=== PATIENT | male | born 1945 | race Caucasian/White ===

== ENCOUNTER → 2017-05-25 | Outpatient (CLI) | payer MEDICARE, OTHER, SELFPAY | PROVIDERS: Visit Provider Internal Medicine Adolescent Medicine | DX: I10 Essential (primary) hypertension (principal) | CPT/HCPCS: 36415; 71020; 80048; 85025 ==

== ENCOUNTER 2018-01-31 10:54 | Observation (INO) ==
--- NOTE | 2018-01-31 13:38 | Pharmacy Consult Notes ---
[facility] Pharmacy VTE Monitoring - Patient Demographics Admission date: 01/31/18 Report Date: 01/31/18 Time: 13:38 Allergies/Adverse Reactions: Patient Allergies hydrocodone [HYDROCODONE] Allergy (Unknown, Unverified 05/25/17 15:28) levocetirizine [From XYZAL] Allergy (Unknown, Unverified 05/25/17 15:28) Height: 1.75 m Weight: 103.447 kg - VTE Risk Clinical Trial Participant: No - Prophylaxis VTE Prophylaxis Ordered?: Yes Types of VTE Prophylaxis: TEDS Knee High
[2018-01-31 14:30] LABS: Coronavirus 229E Not Detected (NotDetected); Coronavirus NL63 Not Detected (NotDetected); Coronavirus OC43 Not Detected (NotDetected); Coronovirus HKU1,PCR Not Detected (NotDetected)
[2018-01-31 14:34] LABS: Basophils % 0.1 % (0.1-2.0); Eosinophils # 0.1 K/mm3 (0.0-0.4); Eosinophils % 0.8 % (0.1-12.0); Hematocrit 38.1 % (42.0-52.0); Hemoglobin 12.5 g/dL (14.1-18.0); Lymphocytes # 0.9 K/mm3 (0.7-4.5); Lymphocytes % 6.7 K/mm3 (10-50); Mean Corpuscular HGB Conc 32.9 g/dL (31.8-35.4); Mean Corpuscular Volume 94.3 fl (80-94); Mean Platelet Volume 7.7 fl (7.4-10.4); Monocytes # 0.6 K/mm3 (0.1-1.0); Monocytes % 4.5 % (1.7-9.3); Neutrophils # 11.2 K/mm3 (1.8-7.8); Neutrophils % 87.8 % (37.0-80.0); Platelet Count 225 K/mm3 (142-424); Red Blood Count 4.04 M/mm3 (4.60-6.20); White Blood Count 12.7 K/mm3 (4.8-10.8)
[2018-01-31 14:46] LABS: Albumin Level 2.5 gm/dL (3.4-5.0); Albumin/Globulin Ratio 0.6 (1.1-1.8); Bilirubin,Total 0.7 mg/dL (0.2-1.0); Calcium 8.2 mg/dL (8.5-10.1); Globulin 3.9 gm/dl (1.3-3.2); Total Protein,Serum 6.4 gm/dL (6.4-8.2)
[2018-01-31 15:17] LABS: Lymphocytes % 7 % (10-50); Monocytes % 8 % (2-9); Neutrophils % 84 % (42-76); Total Cells Counted 100
--- NOTE | 2018-01-31 15:22 | History & Physical Report ---
*Admission Date: 01/31/18 *Chief complaint: shortness of breath *History of present illness: 72 year old male with a significant h/o idiopathic pulmonary fibrosis presents to PCP office with increased cough and shortness of breath. Patient was seen in the office on 01/25 and given Doxycycline and prednisone. Patient reports shortness of breath and cough have worsened. States "I haven't slept in a week for coughing." Today, is was noted to be hypoxic with saturations 88% on 2L/NC and mildly tachypneic at 28. He had to stop multiple times walking into office from his car. He was directed admitted for IV antibiotics and further evaluation. [facility] History I have reviewed the patient's past medical history: Yes Medical History: Reports:: Hyperlipidemia, Hypertension Denies:: Diabetes Mellitus Type 1, Diabetes Mellitus Type 2 Other Medical History: Reports: Arthritis, Cataracts Other Surgeries: Yes: Cardiac Catheterization - *Social History Educational Level: Completed College Alcohol Intake: never Occupational Status: retired Household Members: spouse - Psychiatric History Expresses thoughts of harming self/others: None Suicide Plan Description: No Plan Review of Systems - Constitutional Reports fever(s), Reports malaise - *Respiratory Reports cough, Reports shortness of breath, Reports excessive phlegm production Meds Allergies Allergy/AdvReac Type Severity Reaction Status Date / Time hydrocodone [HYDROCODONE] Allergy Unknown Verified 01/31/18 14:40 levocetirizine [From XYZAL] Allergy Unknown Verified 01/31/18 14:40 Exam Vital signs and Labs for Last 24 Hours: Temp Pulse Resp BP Pulse Ox 98.2 F 86 20 129/58 92 L 01/31/18 13:32 01/31/18 13:32 01/31/18 13:32 01/31/18 13:32 01/31/18 13:32 Laboratory Results - last 24 hr 01/31/18 14:15: WBC 12.7 H, RBC 4.04 L, Hgb 12.5 L, Hct 38.1 L, MCV 94.3 H, MCH 31.0, MCHC 32.9, RDW 14.0, Plt Count 225, MPV 7.7, Neut % (Auto) 87.8 H, Lymph % (Auto) 6.7 L, [place] % (Auto) 4.5, Eos % (Auto) 0.8, Baso % (Auto) 0.1, Neut # ( Auto) 11.2 H, Lymph # (Auto) 0.9, [place] # (Auto) 0.6, Eos # (Auto) 0.1, Baso # ( Auto) 0.0 01/31/18 14:15: Sodium 142, Potassium 3.0 L, Chloride 105, Carbon Dioxide 27, Anion Gap 13.0, BUN 14, Creatinine 0.93, Estimated Creat Clear 101, Estimated GFR 80, Est GFR ( Amer) 97, Glucose 153 H, Calcium 8.2 L, Total Bilirubin 0.7, AST 16, ALT 26, Alkaline Phosphatase 74, Total Protein 6.4, Albumin 2.5 L, Globulin 3.9 H, Albumin/Globulin Ratio 0.6 L I & O for Last 24 hours: Intake & Output 01/29/18 01/30/18 01/31/18 02/01/18 11:59 11:59 11:59 11:59 Weight 228 lb 1 oz Microbiology Reports for the Last 24 Hours: Microbiology 01/31/18 13:23 Sputum - Expectorated Sputum Gram Stain - Final Narrative: Alert and oriented x3. Rate and rhythm regular. No edema. TM with serous effusions bilaterally. + thrush. Lung sounds with crackles right posterior lung and skilled nursing up left posterior lung. Abdomen soft and nontender. Neuro exam unremarkable. Assessment and Plan (1) Pulmonary fibrosis Current visit: Yes Status: Chronic Category: Medical Code(s): J84.10 - Pulmonary fibrosis, unspecified (2) CAP (community acquired pneumonia) Current visit: Yes Status: Acute Category: Medical Code(s): J18.9 - Pneumonia, unspecified organism (3) Thrush Current visit: Yes Status: Acute Category: Medical Code(s): B37.0 - Candidal stomatitis - Assessment and plan all Dx Assessment and Plan for all problems:: CXR showed RUL pneumonia. CAP pneumonia protocol with pseudomonas coverage. Nystatin swish and swallow for thrush.
--- NOTE | 2018-01-31 22:13 | Cardiology Report ---
PROCEDURE: 2-D M-mode and color Doppler study INDICATIONS FOR THE TEST: Chest pain COPD Heart Murmur Tobacco Smoking Palpitations Fatigue Syncope Edema HypertensionXDiabetes Mellitus Rheumatic Fever SOBXDOEXObesityXHyperlipidemiaX Family History HD Additional History PUL FIBROSIS PATIENT INFORMATION HEIGHT: 69 WEIGHT:226 GENDER: Male B/P:118/60 2-D/M-MODE INTERPRETATION: 2-D MEASUREMENTS OBSERVED VALUES IN CMS Right Ventricular Dimension (RVDd) 3.5 Interventricular Septum (Thickness)(IVsd) 1.0 Left Ventricular Internal Dimensions(LVIDd) 5.0 Left Ventricular Posterior Wall (Thickness)(LVPWd) .9 Aortic Root 3.3 Aortic Cusp Separation 1.6 Left Atrial Dimensions (LAD) 4.2 2D 1. Left atrium is mildly enlarged, left ventricle is normal size, there is no concentric left ventricular hypertrophy, visually estimated ejection fraction 55% with no obvious regional wall motion abnormality. 2. The right atrium and right ventricle are mildly enlarged with normal contractility. 3. The aortic valve is minimally thickened and fibrosed. 4. The mitral leaflets of myxomatous, there is mild prolapse of both anterior and posterior mitral leaflet. 5. The tricuspid valve leaflets are structurally normal. 6. The pulmonic valve is poorly visualized. 7. No significant pericardial effusion noted. DOPPLER INTERROGATION: Doppler interrogation of the aortic, mitral and tricuspid presence of mild mitral and tricuspid regurgitation, calculated right ventricular systolic pressure is 60 mmHg consistent with moderate pulmonary hypertension, diastolic parameters are inconclusive. CONCLUSION: 1. Mild biatrial enlargement, normal left ventricular size, preserved left ventricular systolic function, visually estimated ejection fraction of 55% with no obvious regional wall motion abnormality. Diastolic parameters are inconclusive. 2. Mild mitral valve prolapse associated with mild mitral regurgitation 3. Mild tricuspid regurgitation, calculated right ventricular systolic pressure is 60 mmHg consistent with moderate pulmonary hypertension, right ventricle is mildly enlarged with normal contractility 4. No significant pericardial effusion noted.
[2018-02-01 06:49] LABS: Basophils % 0.1 % (0.1-2.0); Eosinophils % 0.1 % (0.1-12.0); Hematocrit 37.2 % (42.0-52.0); Hemoglobin 11.7 g/dL (14.1-18.0); Lymphocytes # 0.6 K/mm3 (0.7-4.5); Mean Corpuscular HGB Conc 31.4 g/dL (31.8-35.4); Mean Corpuscular Hemoglobin 30.3 pg (27.0-31.2); Mean Corpuscular Volume 96.4 fl (80-94); Mean Platelet Volume 7.8 fl (7.4-10.4); Monocytes # 0.2 K/mm3 (0.1-1.0); Monocytes % 2.3 % (1.7-9.3); Neutrophils # 9.1 K/mm3 (1.8-7.8); Neutrophils % 91.6 % (37.0-80.0); Platelet Count 230 K/mm3 (142-424); Red Blood Count 3.85 M/mm3 (4.60-6.20); Red Cell Distribution Width 13.9 % (11.5-17.5); White Blood Count 9.9 K/mm3 (4.8-10.8)
[2018-02-01 06:55] LABS: Anion Gap 14.4 mEq/L (5-15); Calcium 8.1 mg/dL (8.5-10.1); Potassium 3.4 mmoL/L (3.5-5.1)
[2018-02-01 09:06] LABS: Lymphocytes % 6 % (10-50); Monocytes % 1 % (2-9); Neutrophils % 92 % (42-76); Total Cells Counted 100
--- NOTE | 2018-02-01 18:04 | Progress Note ---
Internal Medicine - PN: Subj *Date: 02/01/18 *Time: 18:01 Interval history: Patient states he is feeling better this morning. Continues to require supplemental oxygen of 2 L. Remains afebrile. Hemodynamically stable. Denies any chest pain, nausea or vomiting, diarrhea. Of note wears oxygen at home of 2 L while asleep. Usually does not wear oxygen during the day Exam Vital signs and Labs for Last 24 Hours: Temp Pulse Resp BP Pulse Ox 98.3 F 90 22 120/62 90 L 02/01/18 15:17 02/01/18 15:17 02/01/18 15:17 02/01/18 15:17 02/01/18 15:17 Laboratory Results - last 24 hr 02/01/18 06:01: WBC 9.9, RBC 3.85 L, Hgb 11.7 L, Hct 37.2 L, MCV 96.4 H, MCH 30.3, MCHC 31.4 L, RDW 13.9, Plt Count 230, MPV 7.8, Neut % (Auto) 91.6 H, Lymph % (Auto) 6.0 L, [place] % (Auto) 2.3, Eos % (Auto) 0.1, Baso % (Auto) 0.1, Neut # (Auto) 9.1 H, Lymph # (Auto) 0.6 L, [place] # (Auto) 0.2, Eos # (Auto) 0.0, Baso # (Auto) 0.0, Total Counted 100, Neutrophils % (Manual) 92 H, Band Neutrophils % 1.0, Lymphocytes % (Manual) 6 L, Monocytes % (Manual) 1 L, Platelet Estimate Normal 02/01/18 06:01: Sodium 141, Potassium 3.4 L, Chloride 105, Carbon Dioxide 25, Anion Gap 14.4, BUN 17, Creatinine 1.04, Estimated Creat Clear 97, Estimated GFR 71, Est GFR ( Amer) 85, Glucose 252 H D, Calcium 8.1 L I & O for Last 24 hours: Intake & Output 01/29/18 01/30/18 01/31/18 02/01/18 23:59 23:59 23:59 23:59 Intake Total 400 / 400 1280 / 1280 Balance 400 / 400 1280 / 1280 Weight 103.447 kg Microbiology Reports for the Last 24 Hours: Microbiology 01/31/18 13:23 Sputum - Expectorated Sputum Gram Stain - Final 01/31/18 13:23 Sputum - Expectorated Sputum Sputum Culture - Preliminary - *Routine HEENT Exam Head: Present: normocephalic, atraumatic Eye: Present: EOMI, PERRL ENT: Present: mucous membranes moist Comments: Nasal cannula in place - *Routine Neck Exam Present: supple, full ROM, JVD. Absent: lymphadenopathy - *Routine Respiratory Exam Present: prolonged expiratory phase, rales (Fine crackles throughout all lung gonzalez). Absent: accessory muscle use, CTA bilaterally, wheezes - *Routine Cardiovascular Exam Present: RRR, Normal S1, Normal S2. Absent: murmur - *Routine Abdominal Exam Present: soft, normoactive bowel sounds - *Routine Rectal Exam Patient deferred: visual exam - *Routine Exam Patient deferred: penile exam - *Routine Extremities Exam Absent: cyanosis, clubbing, edema - *Routine Skin Exam Present: intact. Absent: cyanosis - *Routine Neurological Exam Present: alert, oriented X3, CN II-XII intact. Absent: altered mental status Assessment and Plan (1) Pulmonary fibrosis Current visit: Yes Status: Chronic Category: Medical Code(s): J84.10 - Pulmonary fibrosis, unspecified (2) CAP (community acquired pneumonia) Current visit: Yes Status: Acute Category: Medical Code(s): J18.9 - Pneumonia, unspecified organism (3) Thrush Current visit: Yes Status: Acute Category: Medical Code(s): B37.0 - Candidal stomatitis Improving, continue nystatin - Assessment and plan all Dx Assessment and Plan for all problems:: Patient has acute on chronic hypoxemic respiratory failure secondary to pneumonia superimposed on idiopathic pulmonary fibrosis. Responding well to antibiotic therapy. Transition to oral Levaquin today. Discontinue Zosyn. Continue to wean oxygen with goal saturation of greater than 92 while awake, greater than 88 while asleep. Continuing azithromycin as per home regimen. Continue regular diet. To new duo nebs Continue home treatment for hypertension/CHF Continue tamsulosin for BPH Continue to require inpatient medical management
--- NOTE | 2018-02-02 08:06 | Discharge Summary ---
General - General Admission date:: 01/31/18 Discharge date: 02/02/18 HPI HPI: 72 year old male with a significant h/o idiopathic pulmonary fibrosis presents to PCP office with increased cough and shortness of breath. Patient was seen in the office on 01/25 and given Doxycycline and prednisone. Patient reports shortness of breath and cough have worsened. States "I haven't slept in a week for coughing." Today, is was noted to be hypoxic with saturations 88% on 2L/NC and mildly tachypneic at 28. He had to stop multiple times walking into office from his car. He was directed admitted for IV antibiotics and further evaluation. Hospital Course Hospital Course: Patient was admitted, found to have right upper and middle lobe pneumonia and treated with broad-spectrum antibiotics. Sputum culture showed few gram- negative rods and coverage was narrowed to levofloxacin. Patient improved, continue to struggle with his baseline fibrosis and did have oral thrush, treated with nystatin wash which improved him over the next couple days. This morning he is almost back to his baseline. Tolerating levofloxacin well. He will be discharged home to finish up a course of this along with his your steroid dose, cough suppressant and nystatin will be prescribed as well. I will see him in 2 weeks. Objective Vital signs: Temp Pulse Resp BP Pulse Ox 98.4 F 92 H 18 136/67 94 L 02/02/18 07:55 02/02/18 07:55 02/02/18 07:55 02/02/18 07:55 02/02/18 07:55 Narrative: Patient is awake, alert, oriented 2, pleasant. Oropharynx has minimal thrush in the lip line bilaterally. Buccal mucus has cleared. Lungs have fibrosis dry crackle sounds in the bases, crackles in the upper lobes are improving. Heart rate regular, abdomen soft, no rash. Results Labs on day of discharge: Labs from last 24 hours 02/01/18 06:01 Total Counted 100 Neutrophils % (Manual) 92 H Band Neutrophils % 1.0 Lymphocytes % (Manual) 6 L Monocytes % (Manual) 1 L Platelet Estimate Normal Preliminary micro results at discharge 01/31/18 13:23 Sputum Culture - Preliminary Sputum - Expectorated Sputum DS: Diagnosis - Discharge Diagnosis (1) Pulmonary fibrosis Status: Chronic (2) CAP (community acquired pneumonia) Status: Acute (3) Thrush Status: Acute Discharge Plan - Patient Discharge Instructions ACTIVITY: Continue current activity DIET: continue same diet - Follow up Plan Follow up with: Thee Childs MD [Primary Care Provider] - 02/15/18 Disposition: Home, Self-[facility] Medications: Home Medications Medication Instructions Recorded Confirmed Type Aspirin [Aspir 81] 81 mg PO HS 01/31/18 01/31/18 History Atorvastatin Calcium [Lipitor 40mg 40 mg PO HS 01/31/18 01/31/18 History Tablet] Azithromycin [Zithromax 250mg 250 mg PO DAILY 01/31/18 01/31/18 History tab] Cetirizine HCl [Zyrtec] 10 mg PO DAILY 01/31/18 01/31/18 History Fluticasone Propionate [Flonase 2 spr NS DAILY 01/31/18 01/31/18 History 50mcg nasal spray 16gm] Fluticasone/Salmeterol [Advair 500 each IH DAILY 01/31/18 01/31/18 History 500/50mcg diskus] Furosemide [Lasix 20mg tab] 20 mg PO DAILY 01/31/18 01/31/18 History Metoprolol Tartrate 25 mg PO BID 01/31/18 01/31/18 History Mycophenolate Mofetil [Cellcept] 1,500 mg PO BID 01/31/18 01/31/18 History Omeprazole [Omeprazole 40mg 20 mg PO BID 01/31/18 01/31/18 History Capsule] Tamsulosin HCl [Flomax 0.4mg 0.4 mg PO HS 01/31/18 01/31/18 History capsule] predniSONE [Deltasone 10mg 7.5 mg PO DAILY 01/31/18 01/31/18 History tablet] Prescriptions/Medication Reconciliation: New levoFLOXacin [Levaquin 750mg tablet] 750 mg PO 1100 #5 tablet Nystatin [Nystatin Susp 500,000 Units/5mL Udc] 500,000 unit PO QID #240 ml Benzonatate [Tessalon Perle 100mg Cap] 200 mg PO TID PRN #30 cap PRN Reason: Cough Continue Azithromycin [Zithromax 250mg tab] 250 mg PO DAILY predniSONE [Deltasone 10mg tablet] 7.5 mg PO DAILY Metoprolol Tartrate 25 mg PO BID Fluticasone/Salmeterol [Advair 500/50mcg diskus] 500 each IH DAILY Cetirizine HCl [Zyrtec] 10 mg PO DAILY Furosemide [Lasix 20mg tab] 20 mg PO DAILY Atorvastatin Calcium [Lipitor 40mg Tablet] 40 mg PO HS Tamsulosin HCl [Flomax 0.4mg capsule] 0.4 mg PO HS Mycophenolate Mofetil [Cellcept] 1,500 mg PO BID Fluticasone Propionate [Flonase 50mcg nasal spray 16gm] 2 spr NS DAILY Aspirin [Aspir 81] 81 mg PO HS Omeprazole [Omeprazole 40mg Capsule] 20 mg PO BID
== END 2018-02-02 10:25 | disposition home or self-care (01) ==
LOC: 2ND
PROVIDERS: ADMIT Internal Medicine Adolescent Medicine; ATTEND Internal Medicine Adolescent Medicine
DX: J18.9 Pneumonia, unspecified organism
CPT/HCPCS: 36415; 71020; 71046; 80048; 80053; 83880; 85007; 85025; 86738; 87040; 87070; 87205; 87486; 87581; 87633; 87798; 93306; 94640; 94761; G0378; J1956; J2543

== ENCOUNTER 2018-02-02 22:14 | Inpatient (IN) ==
[2018-02-02 22:30] LABS: ABG Base Excess 3.6 mmol/L (-2.4-2.3); ABG HCO3 26.4 mmhg (22.0-26.0); ABG Oxygen Saturation 88 % (90-100); ABG PCO2 33.2 mmhg (35.0-45.0); ABG PH 7.52 mmol/L (7.35-7.45); ABG TCO2 27.5 mmhg (23-27)
[2018-02-02 22:33] LABS: ABG PO2 49.7 mmhg (80-100); Allen's Test Acceptable; Oxygen 36 %
[2018-02-02 22:38] LABS: Basophils % 0.2 % (0.1-2.0); Eosinophils # 0.2 K/mm3 (0.0-0.4); Eosinophils % 0.8 % (0.1-12.0); Hematocrit 42.7 % (42.0-52.0); Hemoglobin 13.7 g/dL (14.1-18.0); Lymphocytes # 1.8 K/mm3 (0.7-4.5); Lymphocytes % 10.4 K/mm3 (10-50); Mean Corpuscular Hemoglobin 30.4 pg (27.0-31.2); Mean Corpuscular Volume 94.8 fl (80-94); Mean Platelet Volume 7.7 fl (7.4-10.4); Monocytes # 0.9 K/mm3 (0.1-1.0); Neutrophils # 14.4 K/mm3 (1.8-7.8); Neutrophils % 83.6 % (37.0-80.0); Platelet Count 301 K/mm3 (142-424); Red Cell Distribution Width 14.1 % (11.5-17.5); White Blood Count 17.2 K/mm3 (4.8-10.8)
[2018-02-02 23:03] LABS: Alanine Aminotransferase 37 U/L (12-78); Albumin Level 2.8 gm/dL (3.4-5.0); Albumin/Globulin Ratio 0.7 (1.1-1.8); Alkaline Phosphatase 82 U/L (46-116); Anion Gap 11.4 mEq/L (5-15); Aspartate Amino Transferase 25 U/L (15-37); Bilirubin,Total 0.4 mg/dL (0.2-1.0); Blood Urea Nitrogen 20 mg/dL (7-18); Calcium 8.5 mg/dL (8.5-10.1); Carbon Dioxide 29 mmol/L (21.0-32.0); Chloride 105 mmol/L (98-107); Creatine Kinase 561 U/L (39-308); Globulin 4.1 gm/dl (1.3-3.2); Glucose 135 mg/dL (74-106); Potassium 3.4 mmoL/L (3.5-5.1); Sodium 142 mmol/L (136-145); Total Protein,Serum 6.9 gm/dL (6.4-8.2)
--- NOTE | 2018-02-02 23:03 | Emergency Department Note ---
ED Disposition Clinical Impression: Pulmonary fibrosis, Hemoptysis, Pulmonary HTN CAP (community acquired pneumonia) Qualifiers: Laterality: unspecified laterality Qualified Code(s): J18.9 - Pneumonia, unspecified organism Disposition: Admitted as Observation Condition on Discharge: Serious Referrals: Thee Childs MD [Primary Care Provider] - - Critical Care Critical Care Time: No Attestation: On 02/02/18, the high probability of a clinically significant, sudden or life threatening deterioration of the following system(s) required my full and direct attention, intervention and personal management. The time I documented below is in addition to time spent performing reported procedures but includes the following listed in this critical care notation. Medical Decision Making - Medical Records Medical records reviewed: Yes: I reviewed the patient's medical records. - Cesra Inquiry Pt receiving controlled substance: No Vital Signs: 02/02/18 22:23 02/02/18 22:43 02/02/18 23:22 Temperature 98.7 F 98.6 F Temperature Source Oral Oral Pulse Rate 90 Pulse Rate [Left Radial] 95 H 100 H Respiratory Rate 28 H 24 Blood Pressure [Right Arm] 134/76 139/82 Blood Pressure Mean [Right Arm] 95 101 Blood Pressure Source [Right Arm] Automatic Cuff Automatic Cuff Blood Pressure Position [Right Arm] Sitting Sitting 02 Sat by Pulse Oximetry 90 L 94 L Oxygen Delivery Method Nasal Cannula Venturi Mask Oxygen Flow Rate (LPM) 4 12 02/03/18 00:22 Temperature Temperature Source Pulse Rate Pulse Rate [Left Radial] 82 Respiratory Rate Blood Pressure [Right Arm] 128/67 Blood Pressure Mean [Right Arm] 87 Blood Pressure Source [Right Arm] Automatic Cuff Blood Pressure Position [Right Arm] Sitting 02 Sat by Pulse Oximetry 87 L Oxygen Delivery Method Venturi Mask Oxygen Flow Rate (LPM) - Lab Data Lab results reviewed: Yes: I reviewed the patient's lab results. Lab Results 02/02/18 22:22: WBC 17.2 H D, RBC 4.50 L, Hgb 13.7 L, Hct 42.7, MCV 94.8 H, MCH 30.4, MCHC 32.0, RDW 14.1, Plt Count 301 D, MPV 7.7, Neut % (Auto) 83.6 H, Lymph % (Auto) 10.4, Mcdonough % (Auto) 5.0, Eos % (Auto) 0.8, Baso % (Auto) 0.2, Neut # (Auto) 14.4 H, Lymph # (Auto) 1.8, Mcdonough # (Auto) 0.9, Eos # (Auto) 0.2, Baso # (Auto) 0.0, Total Counted 100, Neutrophils % (Manual) 84 H, Lymphocytes % (Manual) 11, Monocytes % (Manual) 5, Platelet Estimate Normal, Anisocytosis 1+ 02/02/18 22:22: Sodium 142, Potassium 3.4 L, Chloride 105, Carbon Dioxide 29, Anion Gap 11.4, BUN 20 H, Creatinine 1.10, Estimated Creat Clear 88, Estimated GFR 66, Est GFR ( Amer) 80, Glucose 135 H, Calcium 8.5, Total Bilirubin 0.4, AST 25 D, ALT 37 D, Alkaline Phosphatase 82, Total Creatine Kinase 561 H* , CK-MB (CK-2) 4.3 H, CK-MB (CK-2) Rel Index 0.8, Troponin I < 0.02, Total Protein 6.9, Albumin 2.8 L, Globulin 4.1 H, Albumin/Globulin Ratio 0.7 L 02/02/18 22:22: Lactate 2.3 H 02/02/18 22:22: Specimen Source Rt radial, O2 % 36, ABG pH 7.52 H, ABG pCO2 33.2 L, ABG pO2 49.7 L, ABG HCO3 26.4 H, ABG Total CO2 27.5 H, ABG O2 Saturation 88 L , ABG Base Excess 3.6 H, Power Test Acceptable 02/02/18 23:28: Urine Color Yellow, Urine Appearance Clear, Urine pH 6.5, Ur Specific [place] 1.020, Urine Protein Negative, Urine Glucose (UA) Negative, Urine Ketones Negative, Urine Blood Negative, Urine Nitrate Negative, Urine Bilirubin Negative, Urine Urobilinogen 0.2, Ur Leukocyte Esterase Negative, Urine WBC Occasional, Urine Bacteria Trace Result diagrams: 02/02/18 22:22 02/02/18 22:22 Orders (Tests/Meds): ED MEDICATIONS Generic Name Dose Route Start Last Admin Trade Name Freq PRN Reason Stop Dose Admin Sodium Chloride 3 ml 02/02/18 22:29 Sodium Chloride 3% 15ml Neb IH 03/04/18 22:28 ONCE PRN INDUCE SPUTUM COLLECTION Discontinued Medications Generic Name Dose Route Start Last Admin Trade Name Freq PRN Reason Stop Dose Admin Albuterol/Ipratropium 3 ml 02/02/18 22:22 02/02/18 22:34 Duoneb 3ml Neb IH 02/02/18 22:23 3 ml ONCE ONE Administration Sodium Chloride 1,000 mls @ 999 mls/hr 02/02/18 22:30 02/02/18 22:34 Sod Chlor 0.9% 1000ml Bag IV 02/02/18 23:30 999 mls/hr .Q1H1M DOMINIC Administration Methylprednisolone Sodium Succinate 125 mg 02/02/18 22:22 02/02/18 22:33 Solu-Medrol 125mg/2ml Vial IV 02/02/18 22:23 125 mg ONCE ONE Administration ORDERS Category Date Time Status CT Chest w/PE protocol [CT angio chest] Stat Cat Scan 02/02/18 23:14 Ordered Chest XR -- portable [XR chest portable] Stat Exams 02/02/18 22:22 Taken UA [Urinalysis and Microscopic] Stat Lab 02/02/18 23:28 Ordered Blood Culture Stat Micro 02/02/18 22:22 Ordered Sputum Culture & Gram Stain Stat Micro 02/02/18 22:35 Ordered - Radiology Data #1 Image(s): Chest Image Reviewed: Yes I reviewed the patient's radiology image Preliminary Findings: Abnormal (fibrosis and pneumonia ) - CT Data CT Scan: Chest Time Received: 00:[address] Reviewed: Yes: I have viewed the radiologist's interpretation Preliminary Findings: Abnormal (cap/fibrosis) - ECG Data Tracing #1 Arrhythmias present: sinus tach Ischemic changes: non-specific ST-T wave changes Resp/SOB HPI - General Chief Complaint: Shortness of Breath/Dyspnea Stated Complaint: Coughing blood Time Seen by Provider: 02/02/18 22:40 Mode of Arrival: EMS Source of Information: Patient, Relative, EMS, Medical Record Limitations: No Limitations Description of Symptoms (Recalled from ER Triage Doc. by RN): to ed per squad with c/o SOB and "coughing up blood" pt just d/[facility] from hospital today with dx of pneumonia and pulmonary fibrosis. - History of Present Illness pt with recent admit for cap and was on levoquin but reports inc cough and had episode of hemoptysis and dec o2 sat - no chest pain reported - MD Complaint: shortness of breath, cough Onset (ago): hour(s) Context: recent illness Severity: moderate Exacerbating factors: coughing Known history of: recurrent pneumonia Associated symptoms: cough Treatment prior to arrival: bronchodilator - Related Data Home oxygen amount: other (40 percent mask) Home Medications Medication Instructions Recorded Confirmed Aspirin [Aspir 81] 81 mg PO HS 01/31/18 02/02/18 Atorvastatin Calcium [Lipitor 40mg 40 mg PO HS 01/31/18 02/02/18 Tablet] Azithromycin [Zithromax 250mg 250 mg PO DAILY 01/31/18 02/02/18 tab] Cetirizine HCl [Zyrtec] 10 mg PO DAILY 01/31/18 02/02/18 Fluticasone Propionate [Flonase 2 spr NS DAILY 01/31/18 02/02/18 50mcg nasal spray 16gm] Fluticasone/Salmeterol [Advair 1 puff IH BID 01/31/18 02/02/18 500/50mcg diskus] Furosemide [Lasix 20mg tablet] 20 mg PO DAILY 01/31/18 02/02/18 Metoprolol Tartrate 25 mg PO BID 01/31/18 02/02/18 Mycophenolate Mofetil [Cellcept] 1,500 mg PO BID 01/31/18 02/02/18 Omeprazole [Omeprazole 40mg 20 mg PO BID 01/31/18 02/02/18 Capsule] Tamsulosin HCl [Flomax 0.4mg 0.4 mg PO HS 01/31/18 02/02/18 capsule] predniSONE [Deltasone 10mg tablet] 2.5 mg PO DAILY 01/31/18 02/02/18 B12/Levomefolate Calcium/B-6 1 each PO DAILY 02/02/18 02/02/18 [Foltx Tablet] Glucosa Richard 2Kcl/Chondroitin Richard 1 each PO DAILY 02/02/18 02/02/18 [Glucosamine & Chondroitin Cap] Ipratropium [place] [Ipratropium 2 spray NS BID 02/02/18 02/02/18 [place] 0.021mg/act NS] Iron [Iron 18mg Tab] 65 mg PO DAILY 02/02/18 02/02/18 Multivitamin [Multivitamins] 1 each PO DAILY 02/02/18 02/02/18 Nystatin [Nystatin Susp 500,000 1 tsp PO QID 02/02/18 02/02/18 Units/5mL Udc] Potassium 99 mg PO DAILY 02/02/18 02/02/18 levoFLOXacin [Levaquin 750mg 750 mg PO DAILY 02/02/18 02/02/18 tablet] Previous Rx's Medication Instructions Recorded Benzonatate [Tessalon [place] 100mg 200 mg PO TID PRN #30 cap 02/02/18 Cap] Allergies Allergy/AdvReac Type Severity Reaction Status Date / Time hydrocodone [HYDROCODONE] Allergy Unknown Verified 01/31/18 14:40 levocetirizine [From XYZAL] Allergy Unknown Verified 01/31/18 14:40 chlorpheniramine AdvReac Mild Drowsy Verified 01/31/18 15:09 [From Tussionex] - Well's Criteria PE Score Clinical signs/symptoms of DVT: No PE is #1 diagnosis or equally likely: Yes Heart rate is > 100: Yes Immobile at least 3 days, or surgery in past 4 wks: No Previously, obj. diagnosed PE or DVT: No Hemoptysis: Yes Malignancy w/Rx within 6mo, or palliative: No PE Score: 5 [facility] History I have reviewed the patient's past medical history: Yes Medical History: Reports:: Hyperlipidemia, Hypertension Denies:: Diabetes Mellitus Type 1, Diabetes Mellitus Type 2 Other Medical History: Reports: Arthritis, Cataracts Other Surgeries: Yes: Cardiac Catheterization - Social History Alcohol Intake: never Occupational Status: retired Household Members: spouse - Psychiatric History Expresses thoughts of harming self/others: None Suicide Plan Description: No Plan ROS Obtained: Yes All systems reviewed & no additional complaints - Constitutional Constitutional: Reports fever(s) - Eyes Eyes: Denies change in vision - ENT Ears, Nose, Mouth, and Throat: Denies sore throat - Cardiovascular Cardiovascular: Denies chest pain, Reports dyspnea - Respiratory Respiratory: Yes as per HPI, Yes cough, Yes non-productive cough, Yes coughing up blood - Gastrointestinal Gastrointestingal: Denies: diarrhea, nausea, vomiting - Genitourinary Male Genitourinary: Denies hematuria - Musculoskeletal Musculoskeletal: Denies joint pain, Denies joint swelling - Integumentary/Breasts Skin/Breast: Denies rash - Neurologic Neurologic: Denies headache(s), Denies vertigo Physical Exam - General General appearance: alert, in no apparent distress - Head Head exam: normocephalic - Eye Eye exam: Present: PERRL, EOMI - ENT ENT exam: Present: mucous membranes moist - Neck Neck exam: Present: trachea midline - Respiratory Respiratory exam: Present: other (rales on rt ). Absent: respiratory distress - Cardiovascular Cardiovascular exam: Present: regular rate, systolic murmur, +S4 - Abdominal Exam Abdominal exam: Present: soft - Extremities Exam Extremities exam: Absent: calf tenderness - Neurological Exam Neurological exam: Present: alert, oriented X3, CN II-XII intact - Psychiatric Psychiatric exam: Present: normal affect - Skin Skin exam: Absent: rash
[2018-02-02 23:32] LABS: Microscopic, Urine URINE MICROSCOPIC (MICROSCOPIC)
[2018-02-02 23:34] LABS: Appearance,Urine CLEAR (Clear); Bilirubin,Urine Negative (Negative); Blood, Urine Negative (Negative); Color,Urine YELLOW (Yellow); Glucose,Urine (UA) Negative (Negative); Ketones,Urine Negative (Negative); Leukocyte Esterase,Urine Negative (Negative); PH,Urine 6.5 (5.0-8.5); Protein,Urine Negative (Negative); Urobilinogen,Urine 0.2 EU/dl (0.2)
[2018-02-02 23:39] LABS: Bacteria,Urine Trace /lpf; WBC,Urine Occasional #/hpf (0-3)
[2018-02-03 00:14] LABS: Anisocytosis 1+; Lymphocytes % 11 % (10-50); Monocytes % 5 % (2-9); Neutrophils % 84 % (42-76); Total Cells Counted 100
[2018-02-03 06:51] LABS: Basophils % 0.1 % (0.1-2.0); Eosinophils % 0.1 % (0.1-12.0); Hematocrit 40.4 % (42.0-52.0); Hemoglobin 12.4 g/dL (14.1-18.0); Lymphocytes # 0.7 K/mm3 (0.7-4.5); Lymphocytes % 4.9 K/mm3 (10-50); Mean Corpuscular HGB Conc 30.6 g/dL (31.8-35.4); Mean Corpuscular Hemoglobin 29.5 pg (27.0-31.2); Mean Corpuscular Volume 96.4 fl (80-94); Mean Platelet Volume 8.7 fl (7.4-10.4); Monocytes # 0.5 K/mm3 (0.1-1.0); Monocytes % 3.4 % (1.7-9.3); Neutrophils # 12.2 K/mm3 (1.8-7.8); Neutrophils % 91.5 % (37.0-80.0); Platelet Count 244 K/mm3 (142-424); Red Blood Count 4.19 M/mm3 (4.60-6.20); Red Cell Distribution Width 13.7 % (11.5-17.5); White Blood Count 13.4 K/mm3 (4.8-10.8)
[2018-02-03 07:21] LABS: Anion Gap 10.9 mEq/L (5-15); Blood Urea Nitrogen 18 mg/dL (7-18); Calcium 8.1 mg/dL (8.5-10.1); Carbon Dioxide 27 mmol/L (21.0-32.0); Chloride 105 mmol/L (98-107); Glucose 192 mg/dL (74-106); Potassium 3.9 mmoL/L (3.5-5.1); Sodium 139 mmol/L (136-145)
--- NOTE | 2018-02-03 07:40 | Pharmacy Consult Notes ---
[facility] Pharmacy VTE Monitoring - Patient Demographics Admission date: 02/02/18 Report Date: 02/03/18 Time: 07:38 Allergies/Adverse Reactions: Patient Allergies hydrocodone [HYDROCODONE] Allergy (Unknown, Verified 01/31/18 14:40) levocetirizine [From XYZAL] Allergy (Unknown, Verified 01/31/18 14:40) chlorpheniramine [From Tussionex] Adverse Reaction (Mild, Verified 01/31/18 15:09) Drowsy Height: 1.75 m Weight: 102.994 kg Patient Problems: Current Active Problems Pulmonary fibrosis (Chronic) CAP (community acquired pneumonia) (Acute) Hemoptysis (Acute) Pulmonary HTN (Acute) - VTE Risk Labs: VTE Related Lab Results Hgb 12.4 g/dL (14.1-18.0) L 02/03/18 06:23 Hct 40.4 % (42.0-52.0) L 02/03/18 06:23 Plt Count 244 K/mm3 (142-424) 02/03/18 06:23 BUN 18 mg/dL (7-18) 02/03/18 06:23 Creatinine 1.04 mg/dL (0.70-1.30) 02/03/18 06:23 Estimated Creat Clear 96 mL/min (0-300) 02/03/18 06:23 Was VTE Risk Assessment Performed: Yes VTE Risk Level: Very Low Risk - Prophylaxis VTE Prophylaxis Ordered?: Yes Types of VTE Prophylaxis: TEDS Knee High Location of Applied Device: Bilateral Lower Extremeties - VTE Diagnosis Confirmed Treatment or plan recommended: Continue Current Treatment
--- NOTE | 2018-02-03 08:52 | H&P/Discharge Summary ---
General - General Admission date:: 02/03/18 Discharge date: 02/03/18 *Admission Date: 02/02/18 *Chief complaint: Shortness of air and hemoptysis *History of present illness: 72-year-old white male with long history of idiopathic pulmonary fibrosis, followed by Dr. Jorge De La Paz at [facility] pulmonary. Patient has been on supplemental oxygen for 5 or 6 years and is on low-dose daily prednisone therapy. He has had frequent exacerbations requiring antibiotics at higher dose steroids over the past 12-24 months, and 2 weeks ago had an exacerbation that we initially treated as an outpatient with doxycycline and steroids. He initially improved, however had an exacerbation worsening earlier this week resulting in chest x-ray that showed right middle lobe infiltrate and admission to the hospital. He was treated with intravenous levofloxacin and did well over the next 48 hours and was transitioned to p.o. therapy and was discharged home yesterday, February 02 with p.o. Levaquin therapy and higher dose steroids. Initially at home did well, but yesterday evening began to have a significant episode of coughing and shortness of air. He has a home O2 saturation monitor that per his report read 65-70% on 2 L nasal cannula and began to have some hemoptysis which he described as bright red blood mixed in with some scant mucus. Called EMS, was brought to the emergency department. Chest x-ray was unchanged and patient improved with higher dose O2 therapy via facemask and stabilized in the low 90% range on a 40% nonrebreather mask. Blood gas showed pH 7.52/PCO2 33/PO2 49 before oxygen therapy was initiated. Other labs were essentially unchanged from his baseline. Patient was admitted to floor. [facility] History I have reviewed the patient's past medical history: Yes Medical History: Reports:: Hyperlipidemia, Hypertension, Lung Disease (Idiopathic pulmonary fibrosis) Denies:: Diabetes Mellitus Type 1, Diabetes Mellitus Type 2 Other Medical History: Reports: Arthritis, Cataracts Other Surgeries: Yes: Cardiac Catheterization - *Social History Educational Level: Completed College Alcohol Intake: never Occupational Status: retired Housing: house Household Members: spouse - Psychiatric History Expresses thoughts of harming self/others: None Suicide Plan Description: No Plan *Family Hx:: Coronary Artery Disease, Diabetes, Heart Attack Review of Systems - Review of Systems Review of systems:: pertinent systems reviewed and negative unless documented below - Constitutional Reports lack of energy, Reports malaise - Eyes Denies blind spots, Denies blurry vision, Denies change in vision - ENT Denies abnormal hearing, Denies bleeding gums, Denies nasal congestion, Denies nasal discharge - *Cardiovascular Reports shortness of breath, Reports shortness of breath with activity, Reports shortness of breath when lying down, Denies chest pain, Denies chest pain with activity, Denies leg pain with activity, Denies excessive sweating, Denies rapid, pounding, or irregular heartbeat, Denies shortness of breath causing sudden awakening - *Respiratory Reports shortness of breath, Reports coughing up blood, Denies change in phlegm color - *Gastrointestinal Denies abdominal pain, Denies belching, Denies constipation, Denies cramping - *Genitourinary Denies difficulty urinating - *Musculoskeletal Denies abnormal walking, Denies joint pain, Denies decreased muscle mass - Integumentary/Breasts Denies acne, Denies hair loss, Denies bleeding lesions - *Neurologic Denies headache(s), Denies dizziness - Endocrine Denies cold intolerance, Denies excessive sweating, Denies flushing, Denies rapid, pounding, or irregular heartbeat - Hematologic/Lymphatic Denies easy bleeding Exam Vital signs and Labs for Last 24 Hours: Temp Pulse Resp BP Pulse Ox 99.2 F 79 24 149/85 90 L 02/03/18 07:59 02/03/18 07:59 02/03/18 07:59 02/03/18 07:59 02/03/18 07:59 Laboratory Results - last 24 hr 02/02/18 22:22: WBC 17.2 H D, RBC 4.50 L, Hgb 13.7 L, Hct 42.7, MCV 94.8 H, MCH 30.4, MCHC 32.0, RDW 14.1, Plt Count 301 D, MPV 7.7, Neut % (Auto) 83.6 H, Lymph % (Auto) 10.4, Maury % (Auto) 5.0, Eos % (Auto) 0.8, Baso % (Auto) 0.2, Neut # (Auto) 14.4 H, Lymph # (Auto) 1.8, Maury # (Auto) 0.9, Eos # (Auto) 0.2, Baso # (Auto) 0.0, Total Counted 100, Neutrophils % (Manual) 84 H, Lymphocytes % (Manual) 11, Monocytes % (Manual) 5, Platelet Estimate Normal, Anisocytosis 1+ 02/02/18 22:22: Sodium 142, Potassium 3.4 L, Chloride 105, Carbon Dioxide 29, Anion Gap 11.4, BUN 20 H, Creatinine 1.10, Estimated Creat Clear 88, Estimated GFR 66, Est GFR ( Amer) 80, Glucose 135 H, Calcium 8.5, Total Bilirubin 0.4, AST 25 D, ALT 37 D, Alkaline Phosphatase 82, Total Creatine Kinase 561 H* , CK-MB (CK-2) 4.3 H, CK-MB (CK-2) Rel Index 0.8, Troponin I < 0.02, Total Protein 6.9, Albumin 2.8 L, Globulin 4.1 H, Albumin/Globulin Ratio 0.7 L 02/02/18 22:22: Lactate 2.3 H 02/02/18 22:22: Specimen Source Rt radial, O2 % 36, ABG pH 7.52 H, ABG pCO2 33.2 L, ABG pO2 49.7 L, ABG HCO3 26.4 H, ABG Total CO2 27.5 H, ABG O2 Saturation 88 L , ABG Base Excess 3.6 H, Power Test Acceptable 02/02/18 23:28: Urine Color Yellow, Urine Appearance Clear, Urine pH 6.5, Ur Specific [place] 1.020, Urine Protein Negative, Urine Glucose (UA) Negative, Urine Ketones Negative, Urine Blood Negative, Urine Nitrate Negative, Urine Bilirubin Negative, Urine Urobilinogen 0.2, Ur Leukocyte Esterase Negative, Urine WBC Occasional, Urine Bacteria Trace 02/03/18 02:30: Lactate 3.1 H 02/03/18 04:30: Troponin I < 0.02 02/03/18 04:30: Lactate 3.0 H 02/03/18 06:23: WBC 13.4 H, RBC 4.19 L, Hgb 12.4 L, Hct 40.4 L, MCV 96.4 H, MCH 29.5, MCHC 30.6 L, RDW 13.7, Plt Count 244, MPV 8.7, Neut % (Auto) 91.5 H, Lymph % (Auto) 4.9 L, Maury % (Auto) 3.4, Eos % (Auto) 0.1, Baso % (Auto) 0.1, Neut # (Auto) 12.2 H, Lymph # (Auto) 0.7, Maury # (Auto) 0.5, Eos # (Auto) 0.0, Baso # (Auto) 0.0 02/03/18 06:23: Sodium 139, Potassium 3.9, Chloride 105, Carbon Dioxide 27, Anion Gap 10.9, BUN 18, Creatinine 1.04, Estimated Creat Clear 96, Estimated GFR 71, Est GFR ( Amer) 85, Glucose 192 H D, Calcium 8.1 L, Magnesium 2.3 H, Troponin I < 0.02 I & O for Last 24 hours: Intake & Output 01/31/18 02/01/18 02/02/18 02/03/18 11:59 11:59 11:59 11:59 Intake Total 851 / 851 Output Total 1300 / 1300 Balance -449 / -449 Weight 227 lb 1 oz Microbiology Reports for the Last 24 Hours: Microbiology 02/02/18 22:35 Sputum - Expectorated Sputum Gram Stain - Final 02/02/18 22:35 Sputum - Expectorated Sputum Sputum Culture - Preliminary Narrative: Patient is pleasant and alert. Certainly concerned about his hemoptysis. He is wearing a facemask that has specks of blood inside the mask from his recent cough. Oropharynx minimal thrush around the inside of the lips but much clearer than previous examinations after nystatin therapy. Nasal passages clear. Lungs have bibasilar crackles, really unchanged from his baseline exam, scattered rhonchi in the upper gonzalez but these clear with coughing. His exam is no worse than on discharge yesterday. Heart rate regular. No murmurs. Abdomen soft and nontender. No edema or clubbing. No skin lesions consistent with bleeding disorder, no petechiae or purpura. Patient is alert, oriented 3. Cranial nerves intact. No deficiencies of extremity movement or strength. Hospital Course Hospital Course: Patient was admitted to floor and this morning is essentially unchanged. Tolerating facemask therapy with oxygen well. Saturations are low normal but stable. Heme dynamically remained stable overnight. Given his hemoptysis, failure of improvement over the past 3-4 weeks and underlying significant lung disease transfer to [facility] as indicated. Patient and his agree. We have contacted [facility] internal medicine service for admission to their progressive care bed with pulmonary consultation. Results Labs on day of discharge: Labs from last 24 hours 02/03/18 02/03/18 02/03/18 06:23 06:23 04:30 WBC 13.4 H RBC 4.19 L Hgb 12.4 L Hct 40.4 L MCV 96.4 H MCH 29.5 MCHC 30.6 L RDW 13.7 Plt Count 244 MPV 8.7 Neut % (Auto) 91.5 H Lymph % (Auto) 4.9 L Maury % (Auto) 3.4 Eos % (Auto) 0.1 Baso % (Auto) 0.1 Neut # (Auto) 12.2 H Lymph # (Auto) 0.7 Maury # (Auto) 0.5 Eos # (Auto) 0.0 Baso # (Auto) 0.0 Total Counted Neutrophils % (Manual) Lymphocytes % (Manual) Monocytes % (Manual) Platelet Estimate Anisocytosis Specimen Source O2 % ABG pH ABG pCO2 ABG pO2 ABG HCO3 ABG Total CO2 ABG O2 Saturation ABG Base Excess Power Test Sodium 139 Potassium 3.9 Chloride 105 Carbon Dioxide 27 Anion Gap 10.9 BUN 18 Creatinine 1.04 Estimated Creat Clear 96 Estimated GFR 71 Est GFR ( Amer) 85 Glucose 192 H D Lactate 3.0 H Calcium 8.1 L Magnesium 2.3 H Total Bilirubin AST ALT Alkaline Phosphatase Total Creatine Kinase CK-MB (CK-2) CK-MB (CK-2) Rel Index Troponin I < 0.02 Total Protein Albumin Globulin Albumin/Globulin Ratio Urine Color Urine Appearance Urine pH Ur Specific [place] Urine Protein Urine Glucose (UA) Urine Ketones Urine Blood Urine Nitrate Urine Bilirubin Urine Urobilinogen Ur Leukocyte Esterase Urine WBC Urine Bacteria 02/03/18 02/03/18 02/02/18 04:30 02:30 23:28 WBC RBC Hgb Hct MCV MCH MCHC RDW Plt Count MPV Neut % (Auto) Lymph % (Auto) Maury % (Auto) Eos % (Auto) Baso % (Auto) Neut # (Auto) Lymph # (Auto) Maury # (Auto) Eos # (Auto) Baso # (Auto) Total Counted Neutrophils % (Manual) Lymphocytes % (Manual) Monocytes % (Manual) Platelet Estimate Anisocytosis Specimen Source O2 % ABG pH ABG pCO2 ABG pO2 ABG HCO3 ABG Total CO2 ABG O2 Saturation ABG Base Excess Power Test Sodium Potassium Chloride Carbon Dioxide Anion Gap BUN Creatinine Estimated Creat Clear Estimated GFR Est GFR ( Amer) Glucose Lactate 3.1 H Calcium Magnesium Total Bilirubin AST ALT Alkaline Phosphatase Total Creatine Kinase CK-MB (CK-2) CK-MB (CK-2) Rel Index Troponin I < 0.02 Total Protein Albumin Globulin Albumin/Globulin Ratio Urine Color Yellow Urine Appearance Clear Urine pH 6.5 Ur Specific [place] 1.020 Urine Protein Negative Urine Glucose (UA) Negative Urine Ketones Negative Urine Blood Negative Urine Nitrate Negative Urine Bilirubin Negative Urine Urobilinogen 0.2 Ur Leukocyte Esterase Negative Urine WBC Occasional Urine Bacteria Trace 02/02/18 02/02/18 02/02/18 22:22 22:22 22:22 WBC RBC Hgb Hct MCV MCH MCHC RDW Plt Count MPV Neut % (Auto) Lymph % (Auto) Maury % (Auto) Eos % (Auto) Baso % (Auto) Neut # (Auto) Lymph # (Auto) Maury # (Auto) Eos # (Auto) Baso # (Auto) Total Counted Neutrophils % (Manual) Lymphocytes % (Manual) Monocytes % (Manual) Platelet Estimate Anisocytosis Specimen Source Rt radial O2 % 36 ABG pH 7.52 H ABG pCO2 33.2 L ABG pO2 49.7 L ABG HCO3 26.4 H ABG Total CO2 27.5 H ABG O2 Saturation 88 L ABG Base Excess 3.6 H Power Test Acceptable Sodium 142 Potassium 3.4 L Chloride 105 Carbon Dioxide 29 Anion Gap 11.4 BUN 20 H Creatinine 1.10 Estimated Creat Clear 88 Estimated GFR 66 Est GFR ( Amer) 80 Glucose 135 H Lactate 2.3 H Calcium 8.5 Magnesium Total Bilirubin 0.4 AST 25 D ALT 37 D Alkaline Phosphatase 82 Total Creatine Kinase 561 H* CK-MB (CK-2) 4.3 H CK-MB (CK-2) Rel Index 0.8 Troponin I < 0.02 Total Protein 6.9 Albumin 2.8 L Globulin 4.1 H Albumin/Globulin Ratio 0.7 L Urine Color Urine Appearance Urine pH Ur Specific [place] Urine Protein Urine Glucose (UA) Urine Ketones Urine Blood Urine Nitrate Urine Bilirubin Urine Urobilinogen Ur Leukocyte Esterase Urine WBC Urine Bacteria 02/02/18 22:22 WBC 17.2 H D RBC 4.50 L Hgb 13.7 L Hct 42.7 MCV 94.8 H MCH 30.4 MCHC 32.0 RDW 14.1 Plt Count 301 D MPV 7.7 Neut % (Auto) 83.6 H Lymph % (Auto) 10.4 Maury % (Auto) 5.0 Eos % (Auto) 0.8 Baso % (Auto) 0.2 Neut # (Auto) 14.4 H Lymph # (Auto) 1.8 Maury # (Auto) 0.9 Eos # (Auto) 0.2 Baso # (Auto) 0.0 Total Counted 100 Neutrophils % (Manual) 84 H Lymphocytes % (Manual) 11 Monocytes % (Manual) 5 Platelet Estimate Normal Anisocytosis 1+ Specimen Source O2 % ABG pH ABG pCO2 ABG pO2 ABG HCO3 ABG Total CO2 ABG O2 Saturation ABG Base Excess Power Test Sodium Potassium Chloride Carbon Dioxide Anion Gap BUN Creatinine Estimated Creat Clear Estimated GFR Est GFR ( Amer) Glucose Lactate Calcium Magnesium Total Bilirubin AST ALT Alkaline Phosphatase Total Creatine Kinase CK-MB (CK-2) CK-MB (CK-2) Rel Index Troponin I Total Protein Albumin Globulin Albumin/Globulin Ratio Urine Color Urine Appearance Urine pH Ur Specific [place] Urine Protein Urine Glucose (UA) Urine Ketones Urine Blood Urine Nitrate Urine Bilirubin Urine Urobilinogen Ur Leukocyte Esterase Urine WBC Urine Bacteria Preliminary micro results at discharge 02/02/18 22:35 Sputum Culture - Preliminary Sputum - Expectorated Sputum DS: Diagnosis - Discharge Diagnosis (1) BMI 33.0-33.9,adult Status: Chronic (2) Acute and chronic respiratory failure Status: Acute (3) Acute on chronic respiratory failure Status: Acute (4) Hyperlipidemia Status: Acute (5) Hemoptysis Status: Acute Problem details: Probable cause from pneumonia/lung inflammation (6) Pulmonary fibrosis Status: Chronic (7) Thrush Status: Acute Problem details: From antibiotic/steroid therapy Discharge Medications - Medications for Discharge Home Medication List at Discharge: No Action Azithromycin [Zithromax 250mg tab] 250 mg PO DAILY predniSONE [Deltasone 10mg tablet] 2.5 mg PO DAILY Metoprolol Tartrate 25 mg PO BID Fluticasone/Salmeterol [Advair 500/50mcg diskus] 1 puff IH BID Cetirizine HCl [Zyrtec] 10 mg PO DAILY Furosemide [Lasix 20mg tablet] 20 mg PO DAILY Atorvastatin Calcium [Lipitor 40mg Tablet] 40 mg PO HS Tamsulosin HCl [Flomax 0.4mg capsule] 0.4 mg PO HS Mycophenolate Mofetil [Cellcept] 1,500 mg PO BID Fluticasone Propionate [Flonase 50mcg nasal spray 16gm] 2 spr NS DAILY Aspirin [Aspir 81] 81 mg PO HS Nystatin [Nystatin Susp 500,000 Units/5mL Udc] 1 tsp PO QID levoFLOXacin [Levaquin 750mg tablet] 750 mg PO DAILY Multivitamin [Multivitamins] 1 each PO DAILY Iron [Iron 18mg Tab] 65 mg PO DAILY Ipratropium [place] [Ipratropium [place] 0.021mg/act NS] 2 spray NS BID Glucosa Richard 2Kcl/Chondroitin Richard [Glucosamine & Chondroitin Cap] 1 each PO DAILY B12/Levomefolate Calcium/B-6 [Foltx Tablet] 1 each PO DAILY Omeprazole [Omeprazole 40mg Capsule] 20 mg PO BID Benzonatate [Tessalon Perle 100mg Cap] 200 mg PO TID PRN #30 cap PRN Reason: Cough Potassium 99 mg PO DAILY Disposition Disposition: Xfer Short-Term Hosp
[2018-02-03 12:46] LABS: Lymphocytes % 7 % (10-50); Monocytes % 2 % (2-9); Neutrophils % 90 % (42-76); Total Cells Counted 100
[2018-02-03 12:47] LABS: RBC Morphology Normal
[2018-02-03 12:51] LABS: ABG Base Excess 2.2 mmol/L (-2.4-2.3); ABG HCO3 25.4 mmhg (22.0-26.0); ABG Oxygen Saturation 93 % (90-100); ABG PCO2 33.4 mmhg (35.0-45.0); ABG PO2 61.9 mmhg (80-100); ABG TCO2 26.4 mmhg (23-27)
[2018-02-03 12:52] LABS: Allen's Test Acceptable; Oxygen 40% venti %
== END 2018-02-03 18:04 | disposition short-term general hospital (02) ==
LOC: 2ND 22:14 → ER 22:14 → OBSVTOIN 02-03 01:00 → 2ND 02-03 01:05
PROVIDERS: ADMIT Emergency Medicine; ATTEND Internal Medicine Adolescent Medicine
CPT/HCPCS: 36415; 71010; 71020; 71045; 71046; 71275; 80048; 80053; 81001; 82550; 82553; 82803; 83605; 83735; 83880; 84484; 85007; 85025; 86738; 87040; 87070; 87077; 87184; 87205; 87486; 87581; 87633; 87798; 93005; 93306; 94640; 94761; 96365; 96367; 96375; 99285; G0378; J1956; J2543; J3370; Q9967

== ENCOUNTER 2018-05-05 09:24 | Outpatient (RCR) | payer MEDICARE, OTHER, SELFPAY | END 2018-07-15 13:43 | disposition home or self-care (01) | LOC: PT 09:24 | PROVIDERS: Visit Provider Internal Medicine Adolescent Medicine | DX: J84.10 Pulmonary fibrosis, unspecified (principal) | CPT/HCPCS: G0237; G0238 ==

== ENCOUNTER 2018-06-27 17:04 | Inpatient (IN) ==
--- NOTE | 2018-06-27 17:15 | History & Physical Report ---
*Admission Date: 06/27/18 *Chief complaint: Pulmonary fibrosis, worsening shortness of breath *History of present illness: Mr. Villanueva is a 72 y.o M with NSIP pulmonary fibrosis, Chronic hypoxic respiratory failure on O2 at home, and steroid induced hyperglycemia who presented to clinic earlier today with complaint of no improvement in respiratory status over the past week. He reports that he was initially seen at [facility] Wednesday a week ago with initiation of Cefdinir for respiratory infection. He subsequently follow-up in the clinic and with his detailer pharmaceuticals, Dr. De La Paz at pulmonology. On the occasions he was feeling somewhat better with a decrease in his daily steroids, and interval improvement in his SOA. Over the past week end though he has begun to feel more short of breath, slight increase in his cough and sputum production, and "just not as good". He is worried due to his last spell ~3 months ago which landed him at on a vent for Pneumonia and respiratory failure. Of note he's on immunosuppression with cellcelpt and prednisone 25 mg daily with ppx of azithromycin and bactrim. He has had prevnar and pneumavax and high dose flu shot this year. One week ago he had symptoms of productive cough with yellow/white and occasional blood tinge sputum, fever of 100.7 with chills, and post nasal drip. His fever has resolved, none >1week. Over the weekend he has begun to use more frequent nebulizer treatments and taking tessalon perles for cough. He is still doing pulmonary rehab, but has not been lately due to respiratory infection. Denies CP, MORRISON, N/V, rash, syncope, LOC, changes in vision.. Has had worsening exercise tolerance and is less mobile due to worsening dyspnea on exertion. [facility] History I have reviewed the patient's past medical history: Yes Medical History: Reports:: Hyperlipidemia, Hypertension, Lung Disease (Idiopathic pulmonary fibrosis) Denies:: Diabetes Mellitus Type 1, Diabetes Mellitus Type 2 Have you ever received a pneumonia vaccine?: No Have you received a flu vaccine this season?: Yes Other Medical History: Reports: Arthritis, Cataracts Other Surgeries: Yes: Cardiac Catheterization - *Social History Alcohol Intake: never Occupational Status: retired Housing: house Household Members: spouse *Family Hx:: Coronary Artery Disease, Diabetes, Heart Attack Review of Systems - Review of Systems Review of systems:: pertinent systems reviewed and negative unless documented below Meds Home Medications Medication Instructions Recorded Confirmed Type Aspirin [Aspir 81] 81 mg PO HS 01/31/18 06/27/18 History Atorvastatin Calcium [Lipitor 40mg 40 mg PO HS 01/31/18 06/27/18 History Tablet] Azithromycin [Zithromax 250mg 250 mg PO DAILY 01/31/18 06/27/18 History tab] Cetirizine HCl [Zyrtec] 10 mg PO DAILY 01/31/18 06/27/18 History Fluticasone Propionate [Flonase 2 spr NS DAILY 01/31/18 06/27/18 History 50mcg nasal spray 16gm] Fluticasone/Salmeterol [Advair 1 puff IH BID 01/31/18 06/27/18 History 500/50mcg diskus] Furosemide [Lasix 20mg tablet] 40 mg PO DAILY 01/31/18 06/27/18 History Metoprolol Tartrate 25 mg PO BID 01/31/18 06/27/18 History Mycophenolate Mofetil [Cellcept] 1,500 mg PO BID 01/31/18 06/27/18 History Omeprazole [Omeprazole 40mg 20 mg PO BID 01/31/18 06/27/18 History Capsule] Tamsulosin HCl [Flomax 0.4mg 0.4 mg PO HS 01/31/18 06/27/18 History capsule] predniSONE [Deltasone 10mg tablet] 2.5 mg PO DAILY 01/31/18 06/27/18 History B12/Levomefolate Calcium/B-6 1 each PO DAILY 02/02/18 06/27/18 History [Foltx Tablet] Glucosa Richard 2Kcl/Chondroitin Richard 1 each PO DAILY 02/02/18 06/27/18 History [Glucosamine & Chondroitin Cap] Ipratropium [place] [Ipratropium 2 spray NS BID 02/02/18 06/27/18 History [place] 0.021mg/act NS] Iron [Iron 18mg Tab] 65 mg PO DAILY 02/02/18 06/27/18 History Multivitamin [Multivitamins] 1 each PO DAILY 02/02/18 06/27/18 History Nystatin [Nystatin Susp 500,000 1 tsp PO QID 02/02/18 06/27/18 History Units/5mL Udc] Potassium 99 mg PO DAILY 02/02/18 06/27/18 History Albuterol Sulfate [Albuterol HFA 2 puffs IH Q6HP PRN #1 inh 06/18/18 06/27/18 Rx Inhaler] Cefdinir [Omnicef 300mg Capsule] 300 mg PO BID 06/27/18 06/27/18 History Allergies Allergy/AdvReac Type Severity Reaction Status Date / Time hydrocodone [HYDROCODONE] Allergy Unknown Verified 01/31/18 14:40 levocetirizine [From XYZAL] Allergy Unknown Verified 01/31/18 14:40 fluconazole [From Diflucan] Allergy Verified 06/27/18 18:39 lisinopril Allergy Verified 06/18/18 15:48 chlorpheniramine AdvReac Mild Drowsy Verified 01/31/18 15:09 [From Tussionex] Exam - Constitutional moderate distress, obese, chronically ill appearing Comments: cushingoid appearance - *Routine HEENT Exam Head: Present: normocephalic, atraumatic Eye: Present: EOMI, PERRL ENT: Present: mucous membranes moist - *Routine Neck Exam Present: supple, full ROM. Absent: JVD - *Routine Respiratory Exam Present: accessory muscle use, prolonged expiratory phase, crackles (coarse in BLL to mid lung gonzalez in posterior). Absent: rales, wheezes - *Routine Cardiovascular Exam Present: RRR, Normal S1. Absent: murmur - *Routine Abdominal Exam Present: soft, normoactive bowel sounds. Absent: tenderness - *Routine Rectal Exam Patient deferred: visual exam - *Routine Exam Patient deferred: penile exam - *Routine Extremities Exam Present: edema (trace LE edema). Absent: cyanosis, clubbing - *Routine Skin Exam Present: intact. Absent: cyanosis, erythema - *Routine Neurological Exam Present: alert, oriented X3. Absent: altered mental status Assessment and Plan (1) Acute and chronic respiratory failure Current visit: No Status: Acute Qualifiers: Respiratory failure complication: hypoxia Qualified Code(s): J96.21 - Acute and chronic respiratory failure with hypoxia Category: Medical Code(s): J96.20 - Acute and chronic respiratory failure, unspecified whether with hypoxia or hypercapnia Mr Villaneuva is a chronically ill appearing 72yo M with terminal Pulmonary fibrosis. He has failed outpatient Abx therapy for respiratory illness and is having interval increase in Sx over the past week. He has been admitted for fur ther work-up and aggressive therapy. His condition of serious and remains guarded. - Initaite IV Steroids and Cefepime for pseudomonal coverage - PO as tolerated - COntinue home meds for prophylaxis. - Duoneb q4hr scheduled - SpO2 goal >92 awake and >88% asleep - Will look into a pulmonology consult in the morning pending availability of Dr. Sharma - continue home regimen with MMF - sputum culture pending. (2) CAP (community acquired pneumonia) Current visit: No Status: Acute Qualifiers: Laterality: unspecified laterality Qualified Code(s): J18.9 - Pneumonia, unspecified organism Category: Medical Code(s): J18.9 - Pneumonia, unspecified organism (3) Hyperlipidemia Current visit: No Status: Acute Category: Medical Code(s): E78.5 - Hyperlipidemia, unspecified (4) Pulmonary HTN Current visit: No Status: Chronic Category: Medical Code(s): I27.20 - Pulmonary hypertension, unspecified (5) BMI 33.0-33.9,adult Current visit: No Status: Chronic Category: Medical Code(s): Z68.33 - Body mass index (BMI) 33.0-33.9, adult (6) Pulmonary fibrosis Current visit: No Status: Chronic Category: Medical Code(s): J84.10 - Pu lmonary fibrosis, unspecified (7) Hypoalbuminemia Current visit: Yes Status: Acute Category: Medical Code(s): E88.09 - Other disorders of plasma-protein metabolism, not elsewhere classified (8) BPH (benign prostatic hyperplasia) Current visit: Yes Status: Chronic Qualifiers: Lower urinary tract symptom presence: symptoms present Lower urinary tract symptom detail: urinary frequency Qualified Code(s): N40.1 - Benign prostatic hyperplasia with lower urinary tract symptoms; R35.0 - Frequency of micturition Category: Medical Code(s): N40.0 - Benign prostatic hyperplasia without lower urinary tract symptoms
[2018-06-27 18:27] LABS: Basophils % 0.1 % (0.1-2.0); Eosinophils # 0.1 K/mm3 (0.0-0.4); Eosinophils % 0.5 % (0.1-12.0); Hematocrit 44.6 % (42.0-52.0); Hemoglobin 13.9 g/dL (14.1-18.0); Lymphocytes # 0.6 K/mm3 (0.7-4.5); Lymphocytes % 3.1 % (10-50); Mean Corpuscular HGB Conc 31.1 g/dL (31.8-35.4); Mean Corpuscular Hemoglobin 30.6 pg (27.0-31.2); Mean Corpuscular Volume 98.5 fl (80-94); Mean Platelet Volume 8.1 fl (7.4-10.4); Monocytes # 0.6 K/mm3 (0.1-1.0); Monocytes % 3.1 % (1.7-9.3); Neutrophils # 18.8 K/mm3 (1.8-7.8); Neutrophils % 93.2 % (37.0-80.0); Platelet Count 272 K/mm3 (142-424); Red Blood Count 4.53 M/mm3 (4.60-6.20); Red Cell Distribution Width 15.1 % (11.5-17.5); White Blood Count 20.2 K/mm3 (4.8-10.8)
[2018-06-27 19:13] LABS: Albumin Level 2.9 gm/dL (3.4-5.0); Albumin/Globulin Ratio 0.7 (1.1-1.8); Anion Gap 16.2 mEq/L (5-15); Bilirubin,Total 0.5 mg/dL (0.2-1.0); Calcium 9.3 mg/dL (8.5-10.1); Globulin 4.3 gm/dl (1.3-3.2); Phosphorous 2.8 mg/dL (2.4-4.9); Potassium 4.2 mmoL/L (3.5-5.1); Total Protein,Serum 7.2 gm/dL (6.4-8.2)
[2018-06-27 20:04] LABS: Eosinophils % 1 % (0-3); Lymphocytes % 2 % (10-50); Monocytes % 4 % (2-9); Neutrophils % 91 % (42-76); RBC Morphology Normal; Total Cells Counted 100
[2018-06-28 03:43] LABS: ABG Base Excess 0.2 mmol/L (-2.4-2.3); ABG HCO3 23.8 mmhg (22.0-26.0); ABG Oxygen Saturation 95 % (90-100); ABG PCO2 33.1 mmhg (35.0-45.0); ABG PH 7.48 mmol/L (7.35-7.45); ABG PO2 69.1 mmhg (80-100); ABG TCO2 24.8 mmhg (23-27)
[2018-06-28 03:45] LABS: Allen's Test Acceptable
[2018-06-28 03:51] LABS: Coronavirus 229E Not Detected (NotDetected); Coronavirus NL63 Not Detected (NotDetected); Coronavirus OC43 Not Detected (NotDetected); Coronovirus HKU1,PCR Not Detected (NotDetected)
--- NOTE | 2018-06-28 07:35 | Pharmacy Consult Notes ---
[facility] Pharmacy VTE Monitoring - Patient Demographics Admission date: 06/27/18 Report Date: 06/28/18 Time: 07:35 Allergies/Adverse Reactions: Patient Allergies hydrocodone [HYDROCODONE] Allergy (Unknown, Verified 01/31/18 14:40) levocetirizine [From XYZAL] Allergy (Unknown, Verified 01/31/18 14:40) fluconazole [From Diflucan] Allergy (Verified 06/27/18 18:39) lisinopril Allergy (Verified 06/18/18 15:48) chlorpheniramine [From Tussionex] Adverse Reaction (Mild, Verified 01/31/18 15:09) Drowsy Height: 1.75 m Weight: 95.368 kg Patient Problems: Current Active Problems Hypoalbuminemia (Acute) BPH (benign prostatic hyperplasia) (Chronic) - VTE Risk Labs: VTE Related Lab Results Hgb 13.9 g/dL (14.1-18.0) L 06/27/18 18:10 Hct 44.6 % (42.0-52.0) 06/27/18 18:10 Plt Count 272 K/mm3 (142-424) 06/27/18 18:10 BUN 18 mg/dL (7-18) 06/27/18 18:50 Creatinine 1.24 mg/dL (0.70-1.30) 06/27/18 18:50 Estimated Creat Clear 75 mL/min (50-200) 06/27/18 18:50 VTE Score: 3 VTE Risk Level: Low Risk - Prophylaxis VTE Prophylaxis Ordered?: Yes Types of VTE Prophylaxis: TEDS Knee High Location of Applied Device: Bilateral Lower Extremeties - VTE Diagnosis Confirmed Treatment or plan recommended: Continue Current Treatment
--- NOTE | 2018-06-28 08:27 | Progress Note ---
Internal Medicine - PN: Subj *Date: 06/28/18 *Time: 08:30 Interval history: Mr. Schrader states he has been better this morning than yesterday on admission. Able to ambulate to the bathroom without shortness of breath. Sputum stain this morning showing diplococci. Given previous cultures, added therapeutic dose azithromycin to his regimen cefepime. Remains afebrile. Tolerating p.o. intake. Short of breath at baseline, hemodynamically stable. No nausea or vomiting. Exam Vital signs and Labs for Last 24 Hours: Temp Pulse Resp BP Pulse Ox 97.8 F 69 20 113/64 90 L 06/28/18 04:04 06/28/18 05:52 06/28/18 04:04 06/28/18 04:04 06/28/18 05:52 Laboratory Results - last 24 hr 06/27/18 18:10: WBC 20.2 H*, RBC 4.53 L, Hgb 13.9 L, Hct 44.6, MCV 98.5 H, MCH 30.6, MCHC 31.1 L, RDW 15.1, Plt Count 272, MPV 8.1, Neut % (Auto) 93.2 H, Lymph % (Auto) 3.1 L, [place] % (Auto) 3.1, Eos % (Auto) 0.5, Baso % (Auto) 0.1, Neut # (Auto) 18.8 H, Lymph # (Auto) 0.6 L, [place] # (Auto) 0.6, Eos # (Auto) 0.1, Baso # (Auto) 0.0, Total Counted 100, Neutrophils % (Manual) 91 H, Band Neutrophils % 1.0, Lymphocytes % (Manual) 2 L, Monocytes % (Manual) 4, Eosinophils % (Manual) 1, Metamyelocytes % 1.0, Platelet Estimate Normal, RBC Morphology Normal 06/27/18 18:50: Sodium 139, Potassium 4.2, Chloride 101, Carbon Dioxide 26, Anion Gap 16.2 H, BUN 18, Creatinine 1.24, Estimated Creat Clear 75, Estimated GFR 58 L, Est GFR ( Amer) 70, Glucose 193 H, Calcium 9.3, Phosphorus 2.8, Magnesium 2.2, Total Bilirubin 0.5, AST 14 L, ALT 32, Alkaline Phosphatase 69, Total Protein 7.2, Albumin 2.9 L, Globulin 4.3 H, Albumin/Globulin Ratio 0.7 L 06/28/18 03:30: Chlamy pneumoniae PCR Not detected, Adenovirus (PCR) Not detected, B. pertussis DNA (PCR) Not detected, Coronavirus OC43 (PCR) Not detected, Coronavirus HKU1 (PCR) Not detected, Coronavirus 229E (PCR) Not detected, Coronavirus NL63 (PCR) Not detected, Human Metapneumovir PCR Not detected, Influenza A (H1) PCR Not detected, Influ A (H1N1/09) PCR Not detected, Influenza A (H3) PCR Not detected, Influenza Type A (PCR) Not detected, Influenza Type B (PCR) Not detected, M. pneumoniae (PCR) Not detected, Parain fluenza 1 (PCR) Not detected, Parainfluenza 2 (PCR) Not detected, Parainfluenza 3 (PCR) Not detected, Parainfluenza 4 (PCR) Not detected, RSV (PCR) Not detected, Entero/Rhino (PCR) Not detected 06/28/18 03:41: Specimen Source Left radial, O2 % 32%, nc, ABG pH 7.48 H, ABG pCO2 33.1 L, ABG pO2 69.1 L, ABG HCO3 23.8, ABG Total CO2 24.8, ABG O2 Saturation 95, ABG Base Excess 0.2, Power Test Acceptable I & O for Last 24 hours: Intake & Output 06/25/18 06/26/18 06/27/18 06/28/18 23:59 23:59 23:59 23:59 Weight 95.736 kg 95.368 kg Microbiology Reports for the Last 24 Hours: Microbiology 06/27/18 19:40 Sputum - Expectorated Sputum Gram Stain - Final 06/27/18 19:40 Sputum - Expectorated Sputum Sputum Culture - Preliminary Narrative: - Constitutional moderate distress, obese, chronically ill appearing Comments: cushingoid appearance - *Routine HEENT Exam Head: Present: normocephalic, atraumatic Eye: Present: EOMI, PERRL ENT: Present: mucous membranes moist - *Routine Neck Exam Present: supple, full ROM. Absent: JVD - *Routine Respiratory Exam Present: accessory muscle use, crackles (coarse in BLL to mid lung gonzalez in posterior, absent in anterior lung gonzalez). Absent: rales, wheezes - *Routine Cardiovascular Exam Present: RRR, Normal S1. Absent: murmur - *Routine Abdominal Exam Present: soft, normoactive bowel sounds. Absent: tenderness - *Routine Extremities Exam Present: edema (trace LE edema). Absent: cyanosis, clubbing - *Routine Skin Exam Present: intact. Absent: cyanosis, erythema - *Routine Neurological Exam Present: alert, oriented X3. Absent: altered mental status Assessment and Plan (1) Acute and chronic respiratory failure Current visit: No Status: Acute Qualifiers: Respiratory failure complication: hypoxia Qualified Code(s): J96.21 - Acute and chronic respiratory failure with hypoxia Category: Medical Code(s): J96.20 - Acute and chronic respiratory failure, unspecified whether with hypoxia or hypercapnia (2) CAP (community acquired pneumonia) Current visit: No Status: Acute Qualifiers: Laterality: unspecified laterality Qualified Code(s): J18.9 - Pneumonia, unspecified organism Category: Medical Code(s): J18.9 - Pneumonia, unspecified organism (3) Hyperlipidemia Current visit: No Status: Acute Category: Medical Code(s): E78.5 - Hyperlipidemia, unspecified (4) Pulmonary HTN Current visit: No Status: Chronic Category: Medical Code(s): I27.20 - Pul monary hypertension, unspecified (5) BMI 33.0-33.9,adult Current visit: No Status: Chronic Category: Medical Code(s): Z68.33 - Body mass index (BMI) 33.0-33.9, adult (6) Pulmonary fibrosis Current visit: No Status: Chronic Category: Medical Code(s): J84.10 - Pulmonary fibrosis, unspecified (7) Hypoalbuminemia Current visit: Yes Status: Acute Category: Medical Code(s): E88.09 - Other disorders of plasma-protein metabolism, not elsewhere classified (8) BPH (benign prostatic hyperplasia) Current visit: Yes Status: Chronic Qualifiers: Lower urinary tract symptom presence: symptoms present Lower urinary tract symptom detail: urinary frequency Qualified Code(s): N40.1 - Benign prostatic hyperplasia with lower urinary tract symptoms; R35.0 - Frequency of micturition Category: Medical Code(s): N40.0 - Benign prostatic hyperplasia without lower urinary tract symptoms - Assessment and plan all Dx Assessment and Plan for all problems:: Mr Villanueva is a chronically ill appearing 72yo M with terminal Pulmonary fibrosis. He has failed outpatient Abx therapy for respiratory illness and is having interval increase in Sx over the past week. Overnight symptoms with marginal improvement. His condition is serious and drug gnosis remains guarded. -Continue IV Steroids and Cefepime for pseudomonal coverage -Initiate therapeutic dose azithromycin - PO as tolerated - COntinue home meds for prophylaxis. - Duoneb q4hr scheduled - SpO2 goal >92 awake and >88% asleep - Will look into a pulmonology consult in the morning pending availability of Dr. Sharma; he is not here today, will try again tomorrow - continue home regimen with MMF - sputum culture pending; staying with diplococci -Is culture with Haemophilus parainfluenza sensitive to a azithromycin only. -Continues to require inpatient management due to high risk of decompensation. -If patient's clinical status worsens, proceed with CT chest.
--- NOTE | 2018-06-29 08:13 | Progress Note ---
Internal Medicine - PN: Subj *Date: 06/29/18 *Time: 08:11 Interval history: Patient had some episodes of hypoxia overnight but now is improving and feels about the same this morning as he did before admission. No significant dyspnea at rest. Exam Vital signs and Labs for Last 24 Hours: Temp Pulse Resp BP Pulse Ox 97.0 F L 101 H 20 112/71 92 L 06/29/18 07:58 06/29/18 07:58 06/29/18 07:58 06/29/18 07:58 06/29/18 07:58 Laboratory Results - last 24 hr 06/28/18 09:15: POC Glucose 235 H 06/28/18 16:40: POC Glucose 128 H 06/29/18 06:15: POC Glucose 160 H I & O for Last 24 hours: Intake & Output 06/26/18 06/27/18 06/28/18 06/29/18 11:59 11:59 11:59 11:59 Intake Total 610 / 610 1440 / 1440 Balance 610 / 610 1440 / 1440 Weight 210 lb 4 oz 212 lb 8 oz Microbiology Reports for the Last 24 Hours: Microbiology 06/27/18 19:40 Sputum - Expectorated Sputum Gram Stain - Final 06/27/18 19:40 Sputum - Expectorated Sputum Sputum Culture - Preliminary Narrative: Patient is alert. Pleasant. Sitting up in chair. On his normal 2.5 L of O2 with O2 saturations in the low percent. Lungs have fibrotic crackles but good air movement. No rhonchi. Heart rate regular. Alert. Oriented x3. No edema. No clubbing. No cyanosis. Assessment and Plan (1) Acute and chronic respiratory failure Current visit: No Status: Acute Qualifiers: Respiratory failure complication: hypoxia Qualified Code(s): J96.21 - Acute and chronic respiratory failure with hypoxia Category: Medical Code(s): J96.20 - Acute and chronic respiratory failure, unspecified whether with hypoxia or hypercapnia (2) CAP (community acquired pneumonia) Current visit: No Status: Acute Qualifiers: Laterality: unspecified laterality Qualified Code(s): J18.9 - Pneumonia, unspecified organism Category: Medical Code(s): J18.9 - Pneumonia, unspecified organism (3) Hyperlipidemia Current visit: No Status: Acute Category: Medical Code(s): E78.5 - Hyperlipidemia, unspecified (4) Pulmonary HTN Current visit: No Status: Chronic Category: Medical Code(s): I27.20 - Pulmonary hypertension, unspecified (5) BMI 33.0-33.9,adult Current visit: No Status: Chronic Category: Medical Code(s): Z68.33 - Body mass index (BMI) 33.0-33.9, adult (6) Pulmonary fibrosis Current visit: No Status: Chronic Category: Medical Code(s): J84.10 - Pulmonary fibrosis, unspecified (7) Hypoalbuminemia Current visit: Yes Status: Acute Category: Medical Code(s): E88.09 - Other disorders of plasma-protein metabolism, not elsewhere classified (8) BPH (benign prostatic hyperplasia) Current visit: Yes Status: Chronic Qualifiers: Lower urinary tract symptom presence: symptoms present Lower urinary tract symptom detail: urinary frequency Qualified Code(s): N40.1 - Benign prostatic hyperplasia with lower urinary tract symptoms; R35.0 - Frequency of micturition Category: Medical Code(s): N40.0 - Benign prostatic hyperplasia without lower urinary tract symptoms - Assessment and plan all Dx Assessment and Plan for all problems:: Significant changes to above problems. Continue current steroids and antibiotics. Await culture results. Pulmonary consultation if available. Discharge home if we're able to find culture results with appropriate oral therapy.
[2018-06-29 08:24] LABS: Eosinophils # 0.1 K/mm3 (0.0-0.4); Eosinophils % 0.3 % (0.1-12.0); Hemoglobin 13.1 g/dL (14.1-18.0); Lymphocytes # 0.6 K/mm3 (0.7-4.5); Lymphocytes % 3.4 % (10-50); Mean Corpuscular HGB Conc 31.1 g/dL (31.8-35.4); Mean Corpuscular Hemoglobin 30.2 pg (27.0-31.2); Mean Platelet Volume 8.1 fl (7.4-10.4); Monocytes # 0.6 K/mm3 (0.1-1.0); Monocytes % 3.2 % (1.7-9.3); Neutrophils # 16.5 K/mm3 (1.8-7.8); Neutrophils % 93.2 % (37.0-80.0); Platelet Count 263 K/mm3 (142-424); Red Blood Count 4.33 M/mm3 (4.60-6.20); Red Cell Distribution Width 14.9 % (11.5-17.5); White Blood Count 17.7 K/mm3 (4.8-10.8)
[2018-06-29 08:34] LABS: Anion Gap 17.1 mEq/L (5-15); Calcium 9.2 mg/dL (8.5-10.1); Potassium 4.1 mmoL/L (3.5-5.1)
[2018-06-29 09:25] LABS: Lymphocytes % 5 % (10-50); Monocytes % 1 % (2-9); Neutrophils % 94 % (42-76); Total Cells Counted 100
[2018-06-29 09:26] LABS: RBC Morphology Normal
[2018-06-30 07:25] LABS: Basophils % 0.1 % (0.1-2.0); Eosinophils % 0.3 % (0.1-12.0); Hematocrit 38.2 % (42.0-52.0); Hemoglobin 11.8 g/dL (14.1-18.0); Lymphocytes # 0.6 K/mm3 (0.7-4.5); Lymphocytes % 4.6 % (10-50); Mean Corpuscular Hemoglobin 30.2 pg (27.0-31.2); Mean Corpuscular Volume 97.5 fl (80-94); Monocytes # 0.5 K/mm3 (0.1-1.0); Neutrophils # 12.3 K/mm3 (1.8-7.8); Neutrophils % 91.1 % (37.0-80.0); Platelet Count 260 K/mm3 (142-424); Red Blood Count 3.92 M/mm3 (4.60-6.20); Red Cell Distribution Width 14.9 % (11.5-17.5); White Blood Count 13.5 K/mm3 (4.8-10.8)
[2018-06-30 07:38] LABS: Calcium 8.9 mg/dL (8.5-10.1)
--- NOTE | 2018-06-30 08:05 | Discharge Summary ---
General - General Admission date:: 06/28/18 Discharge date: 06/30/18 HPI HPI: Mr. Villanueva is a 72 y.o M with NSIP pulmonary fibrosis, Chronic hypoxic respiratory failure on O2 at home, and steroid induced hyperglycemia who presented to clinic earlier today with complaint of no improvement in respiratory status over the past week. He reports that he was initially seen at [facility] Wednesday a week ago with initiation of Cefdinir for respiratory infection. 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 De La Paz at pulmonology. On the occasions he was feeling somewhat better with a decrease in his daily steroids, and interval improvement in his SOA. Over the past week end though he has begun to feel more short of breath, slight increase in his cough and sputum production, and "just not as good". He is worried due to his last spell ~3 months ago which landed him at on a vent for Pneumonia and respiratory failure. Of note he's on immunosuppression with cellcelpt and prednisone 25 mg daily with ppx of azithromycin and bactrim. He has had prevnar and pneumavax and high dose flu shot this year. One week ago he had symptoms of productive cough with yellow/white and occasional blood tinge sputum, fever of 100.7 with chills, and post nasal drip. His fever has resolved, none >1week. Over the weekend he has begun to use more frequent nebulizer treatments and taking tessalon perles for cough. He is still doing pulmonary rehab, but has not been lately due to respiratory infection. Denies CP, MORRISON, N/V, rash, syncope, LOC, changes in vision.. Has had worsening exercise tolerance and is less mobile due to worsening dyspnea on exertion. Hospital Course Hospital Course: Patient was admitted for IV antibiotics and steroids. CXR was obtained which showed chronic changes and possible pneumonia. Sputum culture was obtained which showed normal respiratory ina. Shortness of breath improved and he was tolerating oral intake well. Discharge home on azithromycin 500 mg po daily x 10 days and prednisone 20 mg po BID x 7 days. See medication reconciliation for complete list. FU in [place] office with Dr. Childs on Wednesday. Objective Vital signs: Temp Pulse Resp BP Pulse Ox 98.0 F 83 18 115/68 89 L 06/30/18 04:00 06/30/18 06:35 06/30/18 04:00 06/30/18 04:00 06/30/18 06:35 Narrative: Alert and oriented x3. Rate and rhythm regular. Trace LE edema. Lungs with scattered intermittent expiratory crackles. Abdomen soft and nontender Results Labs on day of discharge: Labs from last 24 hours 06/30/18 06/30/18 06/29/18 06:50 06:50 16:25 WBC 13.5 H RBC 3.92 L Hgb 11.8 L Hct 38.2 L MCV 97.5 H MCH 30.2 MCHC 31.0 L RDW 14.9 Plt Count 260 MPV 8.0 Neut % (Auto) 91.1 H Lymph % (Auto) 4.6 L [place] % (Auto) 4.0 Eos % (Auto) 0.3 Baso % (Auto) 0.1 Neut # (Auto) 12.3 H Lymph # (Auto) 0.6 L [place] # (Auto) 0.5 Eos # (Auto) 0.0 Baso # (Auto) 0.0 Total Counted Neutrophils % (Manual) Lymphocytes % (Manual) Monocytes % (Manual) Platelet Estimate RBC Morphology Sodium 140 Potassium 4.0 Chloride 105 Carbon Dioxide 25 Anion Gap 14.0 BUN 23 H Creatinine 1.07 Estimated Creat Clear 86 Estimated GFR 68 Est GFR ( Amer) 83 Glucose 147 H D POC Glucose 70 Calcium 8.9 06/29/18 06/29/18 08:05 08:05 WBC 17.7 H RBC 4.33 L Hgb 13.1 L Hct 42.0 MCV 97.0 H MCH 30.2 MCHC 31.1 L RDW 14.9 Plt Count 263 MPV 8.1 Neut % (Auto) 93.2 H Lymph % (Auto) 3.4 L [place] % (Auto) 3.2 Eos % (Auto) 0.3 Baso % (Auto) 0.0 L Neut # (Auto) 16.5 H Lymph # (Auto) 0.6 L [place] # (Auto) 0.6 Eos # (Auto) 0.1 Baso # (Auto) 0.0 Total Counted 100 Neutrophils % (Manual) 94 H Lymphocytes % (Manual) 5 L Monocytes % (Manual) 1 L Platelet Estimate Normal RBC Morphology Normal Sodium 139 Potassium 4.1 Chloride 103 Carbon Dioxide 23 Anion Gap 17.1 H BUN 22 H Creatinine 1.17 Estimated Creat Clear 80 Estimated GFR 62 Est GFR ( Amer) 75 Glucose 207 H POC Glucose Calcium 9.2 DS: Diagnosis - Discharge Diagnosis (1) Acute and chronic respiratory failure Status: Acute (2) CAP (community acquired pneumonia) Status: Acute (3) Hyperlipidemia Status: Acute (4) Pulmonary HTN Status: Chronic (5) BMI 33.0-33.9,adult Status: Chronic (6) Pulmonary fibrosis Status: Chronic (7) Hypoalbuminemia Status: Acute (8) BPH (benign prostatic hyperplasia) Status: Chronic Discharge Plan - Patient Discharge Instructions ACTIVITY: Continue current activity DIET: continue same diet Patient Instructions: DI for Pneumonia -- Adult, DI for Respiratory Failure - Follow up Plan Follow up with: Thee Childs MD [Staff Physician] - 07/05/18 Disposition: Home, Self-Halfway Medications: Home Medications Medication Instructions Recorded Confirmed Type Aspirin [Aspir 81] 81 mg PO HS 01/31/18 06/27/18 History Atorvastatin Calcium [Lipitor 40mg 40 mg PO HS 01/31/18 06/27/18 History Tablet] Azithromycin [Zithromax 250mg 250 mg PO DAILY 01/31/18 06/27/18 History tab] Cetirizine HCl [Zyrtec] 10 mg PO DAILY 01/31/18 06/27/18 History Fluticasone Propionate [Flonase 2 spr NS DAILY 01/31/18 06/27/18 History 50mcg nasal spray 16gm] Fluticasone/Salmeterol [Advair 1 puff IH BID 01/31/18 06/27/18 History 500/50mcg diskus] Mycophenolate Mofetil [Cellcept] 1,500 mg PO BID 01/31/18 06/27/18 History Omeprazole [Omeprazole 40mg 20 mg PO BID 01/31/18 06/27/18 History Capsule] Tamsulosin HCl [Flomax 0.4mg 0.4 mg PO HS 01/31/18 06/27/18 History capsule] B12/Levomefolate Calcium/B-6 1 each PO DAILY 02/02/18 06/27/18 History [Foltx Tablet] Glucosa Richard 2Kcl/Chondroitin Richard 1 each PO DAILY 02/02/18 06/27/18 History [Glucosamine & Chondroitin Cap] Ipratropium [place] [Ipratropium 1 spray NS BID 02/02/18 06/28/18 History [place] 0.021mg/act NS] Iron [Iron 18mg Tab] 65 mg PO DAILY 02/02/18 06/27/18 History Multivitamin [Multivitamins] 1 each PO DAILY 02/02/18 06/27/18 History Nystatin [Nystatin Susp 500,000 1 tsp PO QID 02/02/18 06/27/18 History Units/5mL Udc] Potassium 99 mg PO DAILY 02/02/18 06/27/18 History Albuterol Sulfate [Albuterol HFA 2 puffs IH Q6HP PRN #1 inh 06/18/18 06/27/18 Rx Inhaler] Furosemide [Furosemide 40MG tAB] 40 mg PO BID 06/28/18 06/28/18 History Glimepiride [Amaryl 2mg tablet] 2 mg PO BID 06/28/18 06/28/18 History LORazepam [Ativan 0.5mg 0.5 mg PO TID 06/28/18 06/28/18 History tablet] Melatonin 6 mg PO HS 06/28/18 06/28/18 History Metoprolol Tartrate 50 mg PO BID 06/28/18 06/28/18 History Sulfamethoxazole/Trimethoprim 1 tab PO DAILY 06/28/18 06/28/18 History [Sulfamethoxazole-Tmp Ss Tablet] predniSONE [Prednisone 20mg 30 mg PO DAILY 06/28/18 06/28/18 History Tab] Azithromycin [Azithromycin 500mg 500 mg PO DAILY #10 tab 06/30/18 Rx Tab] predniSONE [Deltasone 20mg 20 mg PO BID 7 Days #14 tab 06/30/18 Rx tablet] Prescriptions/Medication Reconciliation: New Azithromycin [Azithromycin 500mg Tab] 500 mg PO DAILY #10 tab predniSONE [Deltasone 20mg tablet] 20 mg PO BID 7 Days #14 tab Continue Fluticasone/Salmeterol [Advair 500/50mcg diskus] 1 puff IH BID Cetirizine HCl [Zyrtec] 10 mg PO DAILY Atorvastatin Calcium [Lipitor 40mg Tablet] 40 mg PO HS Tamsulosin HCl [Flomax 0.4mg capsule] 0.4 mg PO HS Mycophenolate Mofetil [Cellcept] 1,500 mg PO BID Fluticasone Propionate [Flonase 50mcg nasal spray 16gm] 2 spr NS DAILY Aspirin [Aspir 81] 81 mg PO HS Nystatin [Nystatin Susp 500,000 Units/5mL Udc] 1 tsp PO QID Multivitamin [Multivitamins] 1 each PO DAILY Iron [Iron 18mg Tab] 65 mg PO DAILY Ipratropium [place] [Ipratropium [place] 0.021mg/act NS] 1 spray NS BID Glucosa Richard 2Kcl/Chondroitin Richard [Glucosamine & Chondroitin Cap] 1 each PO DAILY B12/Levomefolate Calcium/B-6 [Foltx Tablet] 1 each PO DAILY Albuterol Sulfate [Albuterol HFA Inhaler] 2 puffs IH Q6HP PRN #1 inh PRN Reason: Shortness Of Breath Or Wheezing Metoprolol Tartrate 50 mg PO BID Melatonin 6 mg PO HS Furosemide [Furosemide 40MG tAB] 40 mg PO BID LORazepam [Ativan 0.5mg tablet] 0.5 mg PO TID Glimepiride [Amaryl 2mg tablet] 2 mg PO BID Sulfamethoxazole/Trimethoprim [Sulfamethoxazole-Tmp Ss Tablet] 1 tab PO DAILY Omeprazole [Omeprazole 40mg Capsule] 20 mg PO BID Potassium 99 mg PO DAILY Discontinued Azithromycin [Zithromax 250mg tab] 250 mg PO DAILY predniSONE [Prednisone 20mg Tab] 30 mg PO DAILY
[2018-06-30 08:52] LABS: Lymphocytes % 2 % (10-50); Monocytes % 2 % (2-9); Neutrophils % 94 % (42-76); Total Cells Counted 100
== END 2018-06-30 15:00 | disposition home or self-care (01) | DRG 189 ==
LOC: 2ND
PROVIDERS: ADMIT Internal Medicine Adolescent Medicine; ATTEND Internal Medicine Adolescent Medicine
CPT/HCPCS: 36415; 71020; 71046; 80048; 80053; 82803; 82962; 83735; 84100; 85007; 85025; 86609; 87070; 87205; 87486; 87581; 87633; 87798; 94640; 94761; 97161; G0378

== ENCOUNTER 2020-01-08 11:33 | Inpatient (IN) | payer MEDICARE, OTHER, SELFPAY ==
[2020-01-08] VITALS (20 sets, daily range): BP systolic 99–190; BP diastolic 68–116; PULSE 70–143; RESP 18–60; TEMP 36.7–37.4; O2SAT 57–93; BMI 28.5; BMI 28.7
--- NOTE | 2020-01-08 | XR_ITS ---
PROCEDURE: XR CHEST PORTABLE CLINICAL HISTORY: Respiratory failure, pneumonia COMPARISON: CR CXR2V XR chest 2V from 06/18/2018 CR CXR2V XR chest 2V from 06/27/[address] CHEST W CON from 01/08/2020 CR XR CHEST AP from 01/08/2020 FINDINGS: 2243 hours Two images are submitted 1 with endotracheal tube 2.2 cm above the fabiana and the other with endotracheal tube 3.4 cm above the fabiana. There is diffuse bilateral alveolar opacification superimposed upon chronic interstitial changes. The alveolar opacification is worse compared to the previous exam. . IMPRESSION: Endotracheal tube in good position. Diffuse bilateral alveolar disease/pneumonia which is progressed Dictated b Power Flores MD 01/09/2020 07:46 Power Flores MD in [place] 01/09/2020 07:46
--- NOTE | 2020-01-08 11:51 | XR_ITS ---
PROCEDURE: XR CHEST AP CLINICAL HISTORY: dyspnea COMPARISON: CXR1VP XR chest portable from 02/02/2018 CXR2V XR chest 2V from 06/18/2018 CXR2V XR chest 2V from 06/27/2018 CT CHEST W CON from 01/08/2020 FINDINGS: There is cardiomegaly. There are low lung volumes with diffuse prominence of the interstitium. Surgical clips are present in the right lung base. Bilateral parenchymal opacity noted in the lower lobes some of which may be due to the diffuse prominence of the interstitium and the low lung volumes. Superimposed pneumonia also considered. IMPRESSION: Low lung volumes with diffuse prominence of the interstitium and superimposed bilateral pneumonia Dictated by: Power Flores MD 01/08/2020 16:39 Electronically signed by Power Flores MD in [place] 01/08/2020 16:39
--- NOTE | 2020-01-08 11:51 | ECG_ITS ---
APPROVED REPORT Exam: Resting ECG HR:88 bpm ECG Measurements Heart Rate 88 AXES OR 144 P 27 QRSd 98 QRS -40 QT 370 T 27 QTc 447 <Conclusion> Normal sinus rhythm Left axis deviation Abnormal ECG Electronically signed by : Thee Childs, 01/10/2020 06:44:23
--- NOTE | 2020-01-08 11:55 | CT_ITS ---
PROCEDURE: CT CHEST W CON CLINCAL INDICATION: pulmonary fibrosis, worsened SOA Respiratory failure, covid pneumonia COMPARISON: AGCHEST CT angio chest from 02/02/2018 CR CXR1VP XR chest portable from 02/02/2018 CR CXR2V XR chest 2V from 06/27/2018 TECHNIQUE: IV Contrast: 75ml Optiray 350 Axial images obtained with sagittal and coronal reformats. All CT scans at the facility use one or more dose reduction, viz: automated exposure control, ma/kV adjustment per patient size (including targeted exams where dose is matched to indication, i.e. head), or iterative reconstruction technique. FINDINGS: Scattered small nodes are present in the mediastinum not significantly changed. No evidence of aortic aneurysm or dissection. No evidence of pulmonary embolus. Mild cardiomegaly. Aortic valve and coronary artery calcifications are present. COPD changes Motion artifact somewhat obscures fine detail. There is diffuse pulmonary fibrotic changes as previously described with diffuse ground-glass/mosaic attenuation of the lower lobes with a crazy paving pattern with some progression of opacification in the upper and mid lung gonzalez. There are low lung volumes. No effusions. No areas of cavitation. No acute finding in the upper abdomen. No acute bony anomalies. IMPRESSION: COPD with pulmonary fibrosis with diffuse ground-glass/mosaic attenuation of the lungs with a crazy paving pattern in the lung bases. This had a similar appearance compared 02/02/2018 and may represent either diffuse chronic airspace disease versus recurrence airspace disease superimposed upon pulmonary fibrotic changes. Favor the latter as the chest x-ray appearance of 06/27/2018 showed some clearing of the diffuse bilateral alveolar disease. Findings may represent diffuse atypical pneumonia/viral/covid pneumonia superimposed upon COPD and pulmonary fibrosis. No evidence of pulmonary embolus Dictated b Power Flores MD 01/09/2020 08:03 Power Flores MD in [place] 01/09/2020 08:03
--- NOTE | 2020-01-08 12:10 | PC.NURSE ---
Lab in at this time for covid swab.
--- NOTE | 2020-01-08 12:17 | HMH.PHAVTE ---
[facility] Pharmacy VTE Monitoring - Patient Demographics Admission date: 01/08/20 Report Date: 01/08/20 Time: 12:17 Allergies/Adverse Reactions: Patient Allergies hydrocodone [HYDROCODONE] Allergy (Unknown, Verified 01/31/18 14:40) levocetirizine [From XYZAL] Allergy (Unknown, Verified 01/31/18 14:40) fluconazole [From Diflucan] Allergy (Verified 06/27/18 18:39) lisinopril Allergy (Verified 06/18/18 15:48) chlorpheniramine [From Tussionex] Adverse Reaction (Mild, Verified 01/31/18 15:09) Drowsy - Prophylaxis VTE Prophylaxis Ordered?: Yes Types of VTE Prophylaxis: TEDS Knee High Location of Applied Device: Bilateral Lower Extremeties - VTE Diagnosis Confirmed Treatment or plan recommended: Continue Current Treatment
[2020-01-08 12:27] LABS: Adenovirus,PCR Not Detected (NotDetected); Bordetella Pertussis Not Detected (NotDetected); Chlamydophila Pneumoniae, PCR Not Detected (NotDetected); Coronavirus 229E Not Detected (NotDetected); Coronavirus NL63 Not Detected (NotDetected); Coronavirus OC43 Not Detected (NotDetected); Coronovirus HKU1,PCR Not Detected (NotDetected); Human Metapneumovirus Not Detected (NotDetected); Influenza A, PCR Not Detected (NotDetected); Influenza AH1, 2009 Not Detected (NotDetected); Influenza AH1, PCR Not Detected (NotDetected); Influenza AH3,PCR Not Detected (NotDetected); Influenza B, PCR Not Detected (NotDetected); Mycoplasma Pneumoniae, PCR Not Detected (NotDetected); Parainfluenza 1, PCR Not Detected (NotDetected); Parainfluenza 2, PCR Not Detected (NotDetected); Parainfluenza 3, PCR Not Detected (NotDetected); Parainfluenza 4, PCR Not Detected (NotDetected); Respiratory Syncytial Virus Not Detected (NotDetected); Rhinovirus/Enterovirus Not Detected (NotDetected)
[2020-01-08 12:38] LABS: Basophils % 0.3 % (0.1-2.0); Eosinophils % 0.2 % (0.1-12.0); Hematocrit 47.8 % (42.0-52.0); Hemoglobin 15.5 g/dL (14.1-18.0); Lymphocytes # 0.7 K/mm3 (0.7-4.5); Mean Corpuscular HGB Conc 32.5 g/dL (31.8-35.4); Mean Corpuscular Hemoglobin 31.3 pg (27.0-31.2); Mean Corpuscular Volume 96.4 fl (80-94); Mean Platelet Volume 8.4 fl (7.4-10.4); Monocytes # 0.5 K/mm3 (0.1-1.0); Monocytes % 4.9 % (1.7-9.3); Neutrophils # 8.7 K/mm3 (1.8-7.8); Neutrophils % 87.6 % (37.0-80.0); Platelet Count 169 K/mm3 (142-424); Red Blood Count 4.96 M/mm3 (4.60-6.20); Red Cell Distribution Width 14.8 % (11.5-17.5); White Blood Count 9.9 K/mm3 (4.8-10.8)
[2020-01-08 12:41] LABS: Alanine Aminotransferase 27 U/L (12-78); Alkaline Phosphatase 86 U/L (38-126); Aspartate Amino Transferase 43 U/L (17-59); Bilirubin,Total 0.7 mg/dl (0.2-1.3); Blood Urea Nitrogen 21 mg/dl (9-20); Creatinine Clearance Estimated 83 mL/min (50-200); Estimated Glomerular Filt Rate 83 ml/min (>60); GFR (African American) 100 ML/MIN (>60)
[2020-01-08 12:42] LABS: Albumin Level 4.4 g/dl (3.5-5.0); Albumin/Globulin Ratio 1.5 (1.1-1.8); Calcium 9.2 mg/dl (8.4-10.2); Globulin 2.9 g/dL (1.3-3.2); Glucose 128 mg/dl (74-100); Magnesium 2.2 mg/dl (1.6-2.3); Total Protein,Serum 7.3 g/dl (6.3-8.2)
[2020-01-08 12:46] LABS: Lactic Acid 3.9 mmol/L (0.7-2.1)
[2020-01-08 12:49] LABS: MANUAL DIFFERENTIAL MANUAL DIFFERENTIAL (MANUAL DIFF)
[2020-01-08 13:08] LABS: ABG Base Excess -1.8 mmol/L (-2.4-2.3); ABG HCO3 22.6 mmhg (22.0-26.0); ABG Oxygen Saturation 90 % (90-100); ABG PH 7.43 mmol/L (7.35-7.45); ABG PO2 55.9 mmhg (80-100); ABG TCO2 23.6 mmhg (23-27)
[2020-01-08 13:10] LABS: Allen's Test Acceptable; Oxygen 50% %; Source Right Radial
[2020-01-08 13:11] LABS: Lymphocytes % 4 % (10-50); Monocytes % 6 % (2-9); Neutrophils % 90 % (42-76); Platelet Estimate Normal; Total Cells Counted 100
[2020-01-08 13:12] LABS: RBC Morphology Normal
--- NOTE | 2020-01-08 13:20 | HMH.HP ---
*Admission Date: 01/08/20 *Chief complaint: dyspnea *History of present illness: Mr. Schrader is a pleasant 74-year-old gentleman with unfortunate history of pulmonary fibrosis, nonspecific interstitial pneumonitis, hypertension, dysthymia, on chronic O2 dependence (2 to 3 L). He presented to clinic today because of worsening shortness of breath and cough over the past 2 to 3 days. He has had increase his oxygen to 5 L with oxygen saturations at home from mid 70s to high 80s. Cough is productive for purulent sputum that is blood-tinged. Denies fever but has been having chills. No known COVID exposure but his admits she has had some upper respiratory symptoms. Patient has been tolerating good p.o. intake, staying hydrated, no nausea, vomiting, diarrhea. Last respiratory illness was in June. Gets flares 3-4 times a year necessitating antibiotics and steroids. Of note, is on lung transplant list at where his food and beverage assistant is located. Patient was admitted for hypoxemic respiratory failure. Further management pending work-up initiated. Concern for sepsis given tachycardia and tachypnea on exam in clinic. Labs pending consisting of CBC, CMP, blood cultures, sputum sample, ABG, lactate, and respiratory panel. Chest imaging with CT and x-ray. In clinic, patient tachypneic into the high 30s with tachycardia of 96 bpm. Denies any travel. He and his have left the house for caodaism and grocery shopping. Wear their mask when they are out. [facility] History I have reviewed the patient's past medical history: Yes Medical History: Reports:: Diabetes Mellitus Type 2, Hyperlipidemia, Hypertension, Lung Disease (Idiopathic pulmonary fibrosis, frequent pneumonia, home o23 l) Denies:: Cancer, Diabetes Mellitus Type 1, Internal Pacemaker, MRSA, Seizures *Have you ever received a pneumonia vaccine?: Yes *Have you received a flu vaccine this season?: Yes Other Medical History: Reports: Arthritis, Cataracts Other Surgeries: Yes: Cardiac Catheterization. No: Pacemaker Amputation: No - *Social History Smoking Status: Never smoker Tobacco Type: cigarettes Alcohol Intake: never *Occupational Status:: retired Housing: house Household Members: spouse *Travel in the last 8 weeks: None Family Hx:: Coronary Artery Disease, Diabetes, Heart Attack Review of Systems - Review of Systems Review of systems:: pertinent systems reviewed and negative unless documented below (14 point review of systems performed, pertinent positives and negatives as per HPI) Meds Home Medications Medication Instructions Recorded Confirmed Type Cetirizine HCl [Zyrtec] 10 mg PO DAILY 01/31/18 01/08/20 History Fluticasone Propionate [Flonase 1 spr NS DAILY 01/31/18 01/08/20 History 50mcg nasal spray 16gm] Fluticasone/Salmeterol [Advair 1 puff IH BID 01/31/18 01/08/20 History 500/50mcg diskus] Tamsulosin HCl [Flomax 0.4mg 0.4 mg PO HS 01/31/18 01/08/20 History capsule] mycophenolate mofetiL [Cellcept] 1,500 mg PO BID 01/31/18 01/08/20 History Glucosa Richard 2Kcl/Chondroitin Richard 1 each PO DAILY 02/02/18 01/08/20 History [Glucosamine & Chondroitin Cap] Ipratropium Martin [Ipratropium 1 spray NS BID 02/02/18 01/08/20 History Martin 0.021mg/act NS] Multivitamin [Multivitamins] 1 each PO DAILY 02/02/18 01/08/20 History Nystatin [Nystatin Susp 500,000 1 tsp PO QID 02/02/18 01/08/20 History Units/5mL Udc] Furosemide [Furosemide 40MG tAB] 40 mg PO BID 06/28/18 01/08/20 History Melatonin 6 mg PO HS 06/28/18 01/08/20 History Metoprolol Tartrate 50 mg PO BID 06/28/18 01/08/20 History Aspirin [Aspirin 325mg Tab] 325 mg PO DAILY 01/08/20 01/08/20 History Atorvastatin Calcium [Lipitor 80mg 40 mg PO HS 01/08/20 01/08/20 History Tab] Azithromycin [Zithromax 250mg 250 mg PO DAILY 01/08/20 01/08/20 History tab] Benzonatate [Benzonatate 100mg 100 mg PO TID 01/08/20 01/08/20 History cap] Empagliflozin [Jardiance] 25 mg PO DAILY 01/08/20 01/08/20 His
[2020-01-08 13:34] LABS: Anion Gap 17.4 mEq/L (5-15); Carbon Dioxide 27 mmol/L (22.0-30.0); Chloride 101 mmol/L (98-107); Potassium 3.4 mmoL/L (3.5-5.1); Sodium 142 mmol/L (136-145)
[2020-01-08 13:53] LABS: Coronavirus 19, PCR Detected (NotDetected)
--- NOTE | 2020-01-08 14:30 | PC.NURSE ---
RT placed pt on Non-Rebreather, pts sats between 85-90
--- NOTE | 2020-01-08 14:52 | HMH.PHAINT ---
MEDICATION RECONCILIATION COMPLETED ON PATIENT USING EXTERNAL FILL HISTORY FROM PHARMACY AND LIST FROM MD OFFICE. -VLADISLAV JONESD
[2020-01-08 16:07] LABS: POC Glucose,Bedside 157 (70-110)
[2020-01-08 16:25] LABS: Reflex Lactic Add Lactic Reflex
--- NOTE | 2020-01-08 17:00 | PC.NURSE ---
Pt admitted this shift with hypoxemic respiratory failure and possible covid. Patients rapid covid swab returned positive and patient was placed in covid unit in a negative pressure room, strict airborne and contact precautions followed with eye protection. Upon patients arrival patient was wearing 4LNC of which he is home dependent, patients oxygen saturation on 4LNC was found to be 59%, pt was then placed on 50% venti with improvement in his saturations to 90-94%, Patient has productive cough with brown blood tinged sputum, sputum sampled collected and sent to lab. Pt had an episode of coughing and oxygen saturations dropped to 80-82%, Pt was then placed on 100% NRB, oxygen saturations have maintained 80-89% on 100% NRB, MD was notified and states he is fine with oxygen saturations 80% and above, to maintain patient on 100% NRB for the time being, Patients lung sounds diminished t/o, respiratory rate 36-40, HR reg, no edema noted, peripheral pulses 2+, perrla, alert and oriented x4, will continue to monitor for changes.
[2020-01-08 17:16] LABS: Lactic Acid Follow Up (RFLX 1) 1.7 mmol/L (0.7-2.1)
--- NOTE | 2020-01-08 18:18 | PC.NURSE ---
Patients O2 saturation has continued to decline on 100% NRB, O2 sats 74%, RR 36, Patient reports feeling SOA and having difficulty breathing, Dr Pena contacted and gave orders to place patient on high flow oxygen, RT at bedside at this time placing patient on vapotherm at 40L/100%. Will continue to monitor for changes.
--- NOTE | 2020-01-08 18:45 | PC.NURSE ---
RT obtained sputum sample and walked it to the lab
[2020-01-08 19:52] LABS: POC Glucose,Bedside 160 (70-110)
--- NOTE | 2020-01-08 21:15 | PC.NURSE ---
S/W Dr. Pena @2044 and MD stated pt will need to be intubated if he maintained sat's < 84% on current Vapotherm settings at 40L on 100%. Pt has dropped 1x to 77% this shift during a persistent coughing spell. Pt slowing worked his way back up to 87%. New orders: d/c duonebs, add Combivent IH q6 and Xopenex 0.63mg IH q2 PRN. states he has communicated with Dr. Edwards, who is on-call, for his vent settings and thresholds. MD Pena reported sedation medication of propofol. Pt currently 84%, RR 40 and labored. Intubation box, vent, and supplies are outside of pt's ICU room. ER MD Matias & staff, [facility] Pat BARRON, and BRIM PRESSER Mary Box RN notified of the above information. Will continue to monitor.
--- NOTE | 2020-01-08 22:15 | PC.NURSE ---
S/W Dr. Edwards, on-call for Dr. Pena, and updated on pt maintaining 79-81% on current Vapotherm settings. New order to proceed with intubation. Propofol gtt for sedation.
--- NOTE | 2020-01-08 22:32 | PC.NURSE ---
PROPOFOL STARTED AT 5 MCG, WILL TITRATE ACCORDINGLY TO ACHIEVE RASS SCORE OF -2.
--- NOTE | 2020-01-08 22:34 | PC.NURSE ---
EVENTS OF INTUBATION, NOTES OBTAINED PER Yari CUNHA RN: 2229- KETAMINE 100 MG IVP 2230- ROXIRONE 100 MG IVP, VAPOTHERM REMOVED, AMBUBAG IN USE. 2231- KETAMINE 100 MG IVP, PROPOFOL STARTED AT 5 MCG. 2233- INTUBATED 2234- ET TUBE 8CM, 22CM @ LIP. O2SAT 63%. 2235- 75% O2 SAT. BP 201/123, 127 HR, 25 RR. 2240- BAGGING AT THIS TIME. 85% AMBUBAG, 122 HR. 2240- 83% AMBUBAG, RR 2O, 134 HR, 191/110. 2243- ADVANCED ET TUBE TO 26 AT LIP. ACMV. 76% O2SAT. 129 HR. 190/112 LUE MANUAL.
--- NOTE | 2020-01-08 22:40 | PC.NURSE ---
INCREASED PROPOFOL TO 10 MCG TO ACHIEVE RASS SCORE OF -1- -2, PT TOLERATING WELL, WILL CONTINUE TO MONITOR.
--- NOTE | 2020-01-08 22:45 | PC.NURSE ---
Dr. Matias at bedside
--- NOTE | 2020-01-08 23:16 | ECG_ITS ---
APPROVED REPORT Exam: Resting ECG HR:108 bpm ECG Measurements Heart Rate 108 AXES RI 152 P 27 QRSd 112 QRS -38 QT 354 T 69 QTc 474 <Conclusion> Sinus tachycardia Left axis deviation Minimal voltage criteria for LVH, may be normal variant Possible Lateral infarct, age undetermined Abnormal ECG Electronically signed by : Thee Childs, 01/10/2020 06:42:48
[2020-01-08 23:24] LABS: Chloride 103 mmol/L (98-107); Potassium 4.3 mmoL/L (3.5-5.1); Sodium 143 mmol/L (136-145)
[2020-01-08 23:26] LABS: Blood Urea Nitrogen 18 mg/dl (9-20); Creatinine Clearance Estimated 83 mL/min (50-200); Estimated Glomerular Filt Rate 111 ml/min (>60); GFR (African American) 134 ML/MIN (>60)
[2020-01-08 23:27] LABS: Alanine Aminotransferase 21 U/L (12-78); Albumin Level 3.9 g/dl (3.5-5.0); Albumin/Globulin Ratio 1.5 (1.1-1.8); Alkaline Phosphatase 93 U/L (38-126); Anion Gap 17.3 mEq/L (5-15); Aspartate Amino Transferase 55 U/L (17-59); Bilirubin,Total 0.5 mg/dl (0.2-1.3); Calcium 8.6 mg/dl (8.4-10.2); Carbon Dioxide 27 mmol/L (22.0-30.0); Globulin 2.6 g/dL (1.3-3.2); Glucose 181 mg/dl (74-100); Total Protein,Serum 6.5 g/dl (6.3-8.2)
[2020-01-08 23:30] LABS: Troponin I < 0.01 ng/ml (0.00-0.034)
[2020-01-08 23:45] LABS: ABG Base Excess 8.8 mmol/L (-2.4-2.3); ABG HCO3 37.8 mmhg (22.0-26.0); ABG Oxygen Saturation 54 % (90-100); ABG TCO2 41.3 mmhg (23-27)
[2020-01-08 23:47] LABS: Lactic Acid 1.9 mmol/L (0.7-2.1)
[2020-01-09] VITALS (29 sets, daily range): BP systolic 78–137; BP diastolic 47–91; PULSE 100–129; RESP 20–36; TEMP 35.9–37.5; O2SAT 76–95; BMI 28.3
--- NOTE | 2020-01-09 01:18 | PC.NURSE ---
received multiple recommendations from 's physicians. discussing with pharmacist, Armando Led who was called in for meds.
--- NOTE | 2020-01-09 01:18 | PC.NURSE ---
nicholas winn on phone with dr benitez at [facility].
[2020-01-09 01:33] LABS: Microscopic, Urine URINE MICROSCOPIC (MICROSCOPIC)
[2020-01-09 01:39] LABS: Appearance,Urine CLEAR (Clear); Bilirubin,Urine Negative (Negative); Blood, Urine TRACE-I (Negative); Color,Urine YELLOW (Yellow); Glucose,Urine (UA) 3+ (Negative); Ketones,Urine 1+ (Negative); Leukocyte Esterase,Urine Negative (Negative); Nitrate,Urine Negative (Negative); Protein,Urine 1+ (Negative); Specific Gravity, Urine 1.025 (1.005-1.030); Urobilinogen,Urine 0.2 EU/dl (0.2)
--- NOTE | 2020-01-09 01:45 | PC.NURSE ---
INCREASED PROPOFOL TO 15 MCG AT THIS TIME R/T PT ATTEMPTING TO MOVE EXTREMITIES AND MOVE HEAD SIDE TO SIDE. WILL CONTINUE TO MONITOR.
[2020-01-09 01:46] LABS: ABG Base Excess -1.4 mmol/L (-2.4-2.3); ABG HCO3 29.5 mmhg (22.0-26.0); ABG Oxygen Saturation 81 % (90-100); ABG PO2 61.1 mmhg (80-100); ABG TCO2 33.2 mmhg (23-27)
[2020-01-09 01:49] LABS: Allen's Test Acceptable; Oxygen 100 %; PEEP 10; Source Right Radial; Tidal Volume 400; Vent Rate 20
[2020-01-09 01:50] LABS: ABG PH 7.02 mmol/L (7.35-7.45)
[2020-01-09 01:51] LABS: ABG PCO2 117.6 mmhg (35.0-45.0)
--- NOTE | 2020-01-09 02:00 | PC.NURSE ---
INCREASED PROPOFOL TO 20 MCG AT THIS TIME R/T CONTINUE THRASHING IN BED. WILL CONTINUE TO MONITOR AND TITRATE ACCORDING TO ACHIEVE RASS SCORE OF -1- -2.
[2020-01-09 02:03] LABS: Bacteria,Urine Trace /lpf; RBC,Urine Occasional #/hpf (0-3)
--- NOTE | 2020-01-09 02:11 | PC.NURSE ---
Late entry: ~ 193 Dr. Pena in ICU, confirmed with pt he would like to be a full code and discussed that he would likely be intubated if his oxygenation declined with his current work of breathing. Pt stated his understanding.
--- NOTE | 2020-01-09 02:13 | PC.NURSE ---
CALLED TO CHECK ON PT REQUESTING VS AND O2 SAT.THESE GIVEN.T 97.8 R HR 118 BP 111/84 SAT 83
--- NOTE | 2020-01-09 02:14 | PC.NURSE ---
new order for magnesium level and to give sodium bicarb noted per dr watkins. debbirn notified
--- NOTE | 2020-01-09 02:15 | PC.NURSE ---
new order for irbesartan 300mg daily noted per dr. watkins.
--- NOTE | 2020-01-09 02:30 | PC.NURSE ---
SPOKE TO CONCERNING UPDATING GOLF CADDY, ,AND HE STATED HE WOULD UPDATE HIM.
[2020-01-09 02:50] LABS: Magnesium 2.4 mg/dl (1.6-2.3)
--- NOTE | 2020-01-09 03:13 | ECG_ITS ---
APPROVED REPORT Exam: Resting ECG HR:118 bpm ECG Measurements Heart Rate 118 AXES MI 152 P 50 QRSd 110 QRS -53 QT 332 T 98 QTc 465 <Conclusion> Sinus tachycardia with premature atrial complexes Incomplete right bundle branch block Left anterior fascicular block Septal infarct, age undetermined T wave abnormality, consider lateral ischemia Abnormal ECG Electronically signed by : Thee Childs, 01/10/2020 06:42:36
--- NOTE | 2020-01-09 03:32 | PC.NURSE ---
Addendum entered by Mary Box RN 01/09/20 03:33: THIS NOTE WAS MEANT TO CORRELATE WITH [facility] VENT MONITORING SETTINGS INTERVENTION AT 01/08/2020 0368 Original Note: NOT ENOUGH SPUTUM NOTED TO COLLECT FOR A SPUTUM COLLECTION, WILL CONTINUE TO ATTEMPT TO COLLECT SPUTUM. VERY SCANT AMOUNT OF SPUTUM NOTED BLOOD TINGED AND THICK IN SUCTION TUBING.
--- NOTE | 2020-01-09 04:00 | PC.NURSE ---
DECREASED PROPOFOL TO 15 MCG TO ACHIEVE RASS SCORE OF -2
--- NOTE | 2020-01-09 04:28 | PC.NURSE ---
CALLED [facility] TO GET UPDATE ON BED ASSIGNMENT. WAS INFORMED WE ARE STILL TRYING TO GET SOME BEDS MOVED AROUND TO GET THE BED ASSIGNMENT. WE ARE STILL WAITING. I WILL HAVE MD PAGED TO CALL YOU BACK SO THE DOCTOR MANAGING HIS CARE CAN GIVE US UPDATES. ALSO INSTRUCTED TO SEND A FACE SHEET TO . HAD APARTMENT LEASING SPECIALIST FAX A FACE SHEET.
--- NOTE | 2020-01-09 04:31 | PC.NURSE ---
Placed 2 warm blankets on pt due to rectal temp of 96.6. Will continue to monitor.
--- NOTE | 2020-01-09 05:15 | PC.NURSE ---
DECREASED PROPOFOL TO 5MCG R/T MANUAL BP OF 90/52 AND TO ACHIEVE RASS SCORE OF -2. RASS SCORE CURRENTLY OF -4. WILL CONTINUE TO MONITOR PT AND REASSESS VS.
--- NOTE | 2020-01-09 06:00 | XR_ITS ---
PROCEDURE: XR CHEST PORTABLE CLINICAL HISTORY: ICU, VENTED PT. Respiratory failure COMPARISON: CR XR CHEST PORTABLE from 01/08/[address] CHEST W CON from 01/08/2020 CR XR CHEST AP from 01/08/2020 CR XR CHEST PORTABLE from 01/08/2020 FINDINGS: 5:41 a.m. Endotracheal tube is present with the tip 2.6 cm above the fabiana. There are low lung volumes with cardiomegaly with diffuse bilateral alveolar opacification superimposed upon chronic interstitial changes. Nasogastric tube is present with the tip in the region of the body of the stomach. No acute bony abnormalities. IMPRESSION: No change, diffuse bilateral alveolar disease with endotracheal tube and nasogastric tube in good position Dictated b Power Flores MD 01/09/2020 07:44 Power Florse MD in OV 01/09/2020 07:44
--- NOTE | 2020-01-09 06:13 | PC.NURSE ---
SINCE RECEIVING REPORT FROM Yari CUNHA RN PT WAS INTUBATED AT 2234. PRIOR TO INTUBATION, PT WAS ANXIOUS AND MADE AWARE OF NEED FOR INTUBATION, TALKED WITH PT AND REASSURED HIM OF STAFF WAS WITH HIM AND HE WAS NOT ALONE. HELD PT'S HAND, PT VERBALIZED UNDERSTANDING AND WAS CALMED DOWN. MEDICATIONS ADMINISTERED PER AUG TO SEDATE. PT WAS INTUBATED ORIGINALLY WITH 8CM TUBE AND AT 22 CM AT THE LIP PER Desi MENJIVAR. CXR OBTAINED AND REVIEWED PER Desi MENJIVAR/LOURDES AND REALIZED ET TUBE NEEDING TO BE ADVANCED FURTHER. ET TUBE ADVANCED TO 26 CM AT THE RIGHT SIDE OF LIP, ON REASSESSMENT CXR CONFIRMED ADEQUATE PLACEMENT OF ET TUBE. IMMEDIATELY POST INTUBATION, PT BECAME DIAPHORETIC, PALE, SWEATING PROFUSELY, O2SATS WERE NOTED IN 60'S AT THIS TIME. LOURDES WAS AT BEDSIDE AND MADE AWARE, ORDERS WERE GIVEN FOR LABS (LACTIC, MAG, TROPONIN, ABG), MEDICATIONS (ADMINISTERED PER AUG) AND EKG OBTAINED AND REVIEWED PER LOURDES. LOURDES CALLED CAMILLE DURING THIS TIME TO UPDATE. DR. KAY HAS CALLED TO CHECK ON PT MULTIPLE TIMES THIS SHIFT AND SPOKE WITH Yari CUNHA RN. [facility] HAS CALLED WELL AND HAS BEEN IN COMMUNICATION WITH DR. FREED THIS SHIFT IN REGARDS TO CARE WITH THE PATIENT. DR. OBRIEN CALLED TO UPDATE AROUND 0000. DR FREED HAS BEEN UPDATED T/O SHIFT PER NURSING STAFF POST INTUBATION OF CURRENT VS, ABG, VENT SETTINGS, ORDERS PLACED IN COMPUTER PER MD OR GIVEN TO NURSING STAFF. VENT SETTINGS HAVE BEEN ADJUSTED MULTIPLE TIMES THIS SHIFT. MOST RECENT VENT SETTINGS ARE ACMV, RR-22, FIO2 100%, TV 380. RR NOTED TO BE IN 30'S AT TIMES INTERMITTENTLY T/O SHIFT. ON ASSESSEMENT PERRLA IS NOTED. ON MOST RECENT ASSESSMENT GAG REFLEX IS NOTED INTACT. PT OPENS EYES TO PAINFUL STIMULUS, UNABLE TO FOLLOW COMMANDS. LUNGS NOTED CLEAR T/O AUSCULTATION. SCANT SPUTUM NOTED THIS SHIFT, SPUTUM COLLECTION DELAYED R/T SCANT AMOUNT. SPUTUM NOTED BLOOD TINGED AND THICK. SPUTUM WAS COLLECTED PER RT. PULSES +2. SINUS TACH NOTED PER CYLINDER VALVE REPAIRER. ON MOST RECENT ASSESSMENT CAP REFILL <3 SEC. SKIN IS COOL PER PALPATION. ABDOMEN NOTED DISTENDED, ACTIVE BOWEL SOUNDS, SOFT PER PALPATION. NG REMAINED IN PLACE THIS IN RIGHT NARE AT 64CM, CONFIRMED PLACEMENT PER XRAY, AUSCULTATION, AND LIGHT BROWN GASTRIC CONTENTS NOTED IN SUCTION CANISTER. NG CONNECTED TO ILWS. ACEVES CATHETER IN PLACE, PATENT AND DRAINING CLEAR YELLOW URINE. TURNED AND REPOSITIONED Q2H WHILE INTUBATED. PT HAS REMAINED IN CONTACT/AIRBORNE ISOLATION PRECAUTIONS, WITH USE OF EYE PROTECTION T/O SHIFT. WILL CONTINUE TO MONITOR.
[2020-01-09 06:36] LABS: Basophils # 0.1 K/mm3 (0-0.2); Basophils % 0.2 % (0.1-2.0); Eosinophils % 0.1 % (0.1-12.0); Hematocrit 50.5 % (42.0-52.0); Hemoglobin 15.7 g/dL (14.1-18.0); Lymphocytes # 0.6 K/mm3 (0.7-4.5); Lymphocytes % 3.2 % (10-50); Mean Corpuscular HGB Conc 31.2 g/dL (31.8-35.4); Mean Corpuscular Hemoglobin 31.6 pg (27.0-31.2); Mean Corpuscular Volume 101.2 fl (80-94); Mean Platelet Volume 8.9 fl (7.4-10.4); Monocytes # 0.7 K/mm3 (0.1-1.0); Monocytes % 3.5 % (1.7-9.3); Neutrophils # 17.9 K/mm3 (1.8-7.8); Neutrophils % 92.9 % (37.0-80.0); Platelet Count 204 K/mm3 (142-424); Red Blood Count 4.98 M/mm3 (4.60-6.20); Red Cell Distribution Width 14.7 % (11.5-17.5); White Blood Count 19.3 K/mm3 (4.8-10.8)
[2020-01-09 06:41] LABS: Chloride 103 mmol/L (98-107); MANUAL DIFFERENTIAL MANUAL DIFFERENTIAL (MANUAL DIFF)
[2020-01-09 06:42] LABS: Potassium 4.4 mmoL/L (3.5-5.1); Sodium 146 mmol/L (136-145)
[2020-01-09 06:44] LABS: Alanine Aminotransferase 33 U/L (12-78); Alkaline Phosphatase 91 U/L (38-126); Aspartate Amino Transferase 74 U/L (17-59); Bilirubin,Total 0.6 mg/dl (0.2-1.3); Blood Urea Nitrogen 24 mg/dl (9-20); Creatinine Clearance Estimated 75 mL/min (50-200); Estimated Glomerular Filt Rate 66 ml/min (>60); GFR (African American) 80 ML/MIN (>60); Magnesium 2.5 mg/dl (1.6-2.3)
[2020-01-09 06:44] LABS: ABG Base Excess -0.9 mmol/L (-2.4-2.3); ABG Oxygen Saturation 76 % (90-100); ABG TCO2 33.6 mmhg (23-27)
[2020-01-09 06:45] LABS: Albumin Level 3.7 g/dl (3.5-5.0); Albumin/Globulin Ratio 1.3 (1.1-1.8); Anion Gap 16.4 mEq/L (5-15); Calcium 8.3 mg/dl (8.4-10.2); Carbon Dioxide 31 mmol/L (22.0-30.0); Globulin 2.9 g/dL (1.3-3.2); Glucose 255 mg/dl (74-100); Total Protein,Serum 6.6 g/dl (6.3-8.2)
[2020-01-09 07:12] LABS: Allen's Test ACCEPTABLE; Oxygen 100 %; PEEP 12; Source R RADIAL; Tidal Volume 380; Vent Rate 22
[2020-01-09 07:13] LABS: ABG PCO2 117.1 mmhg (35.0-45.0); ABG PH 7.03 mmol/L (7.35-7.45); ABG PO2 49.6 mmhg (80-100)
[2020-01-09 07:15] LABS: Oxygen 100 %; PEEP 10; Tidal Volume 300; Vent Rate 20
[2020-01-09 07:16] LABS: ABG PH 7.14 mmol/L (7.35-7.45); Allen's Test ACCEPTABLE; Source R RADIAL
[2020-01-09 07:17] LABS: ABG PCO2 113.6 mmhg (35.0-45.0)
--- NOTE | 2020-01-09 07:43 | PC.NURSE ---
DR. KAY SPEAKING TO VIA COMMUNICATION I-PAD AT THIS TIME TO UPDATE ON PT'S CURRENT CONDITION
--- NOTE | 2020-01-09 08:30 | PC.NURSE ---
0830 - DR. LUCAS AT BEDSIDE W/ RT MARY. ET TUBED MOVED BY RT TO (R) SIDE OF MOUTH AND TUBE PULLED OUT TO 24 @ LIP PER DR'S ORDERS
[2020-01-09 08:32] LABS: Lymphocytes % 3 % (10-50); Monocytes % 4 % (2-9); Neutrophils % 93 % (42-76); Total Cells Counted 100
[2020-01-09 08:33] LABS: Anisocytosis 1+; Macrocytosis 1+; Platelet Estimate Normal
[2020-01-09 08:45] LABS: ABG Base Excess -6.2 mmol/L (-2.4-2.3); ABG HCO3 25.1 mmhg (22.0-26.0); ABG Oxygen Saturation 91 % (90-100); ABG PO2 76.3 mmhg (80-100); ABG TCO2 28.3 mmhg (23-27)
[2020-01-09 08:49] LABS: Oxygen 100% %; PEEP 20; Tidal Volume 420; Vent Rate 30
[2020-01-09 08:50] LABS: ABG PCO2 103.8 mmhg (35.0-45.0)
--- NOTE | 2020-01-09 09:00 | PC.NURSE ---
0900 - TIME OUT AT THIS TIME. DR. LUCAS PERFORMED STERILE BEDSIDE INSERTION OF ARTERIAL LINE TO (L) WRIST W/ SUCCESS IN FIRST ATTEMPT. PT TOLERATED WELL. THIS NURSE AND MARY(RT) AND LESLYE(RT) AT BEDSIDE DURING PROCEDURE.
--- NOTE | 2020-01-09 09:03 | PC.NURSE ---
0845 was asked to see bed situation FOR THIS PT AT AND . NOTIFED AND WAS INFORMED THAT BEST TIME FOR POSSIBLE BED AVAILABITLIY WOULD BE BETWEEN 3-7 THIS AFTERNOON. ATTEMPTED TO CHECK WITH BED COORDINATOR AT AND WAS TOLD FROM [facility] ON LINE WITH BED COORDINATOR.
--- NOTE | 2020-01-09 09:08 | PC.NURSE ---
HENRIK JIMENEZ WAS NOTIFED OF BED SITUATION OF AND [facility]
--- NOTE | 2020-01-09 10:28 | HMH.PULMCON ---
*Admission Date: 01/08/20 *Reason for consult:: Acute on Hypoxic respiratory failure *History of present illness: History was obtained from the chart review as patient was intubated and sedated and unable to communicate. Mr. Villanueva is a 74-year-old male with a history of nonspecific interstitial pneumonia, pulmonary fibrosis, hypertension, chronic respiratory failure on long-term oxygen therapy at 2 to 3 L presented yesterday to the clinic with worsening shortness of breath and cough for 2 to 3 days duration. He was also on the lung transplant list at [facility] for fibrosis and respiratory failure. Hospital course: He was admitted to the hospital with worsening respiratory failure and was initially placed on BiPAP, however his respiratory status gradually declined needing intubation emergent intubation overnight. His COVID-19 PCR returned positive yesterday. His vent requirements gradually worsened overnight to a point where this morning he is needing 20 of PEEP at 100% FiO2, respiratory rate of 30 with a PO2 of 76.3 on the recent ABG. Peak pressures are ranging anywhere between like 35-45 mm Hg with high plateau pressures consistent with his pulmonary fibrosis. With respect to his sepsis patient initial lactate was elevated at 6, he was given a 1 L bolus in the ED and was started on Zosyn and levofloxacin. Patient lactate returned to normal, however his blood pressures remain low as of this morning, however the blood pressure cuff readings are inaccurate and highly variable, an arterial line was placed. However due to technical difficulties we could not get a reading on the A-line. [facility] History Medical History: Reports:: Diabetes Mellitus Type 2, Hyperlipidemia, Hypertension, Lung Disease (Idiopathic pulmonary fibrosis, frequent pneumonia, home o23 l) Denies:: Cancer, Diabetes Mellitus Type 1, Internal Pacemaker, MRSA, Seizures *Have you ever received a pneumonia vaccine?: Yes *Have you received a flu vaccine this season?: Yes Other Medical History: Reports: Arthritis, Cataracts Other Surgeries: Yes: Cardiac Catheterization. No: Pacemaker Amputation: No - *Social History Smoking Status: Never smoker Tobacco Type: cigarettes Alcohol Intake: never *Occupational Status:: retired Housing: house Household Members: spouse *Travel in the last 8 weeks: None Family Hx:: Coronary Artery Disease, Diabetes, Heart Attack Meds Home Medications Medication Instructions Recorded Confirmed Type Cetirizine HCl [Zyrtec] 10 mg PO DAILY 01/31/18 01/08/20 History Fluticasone Propionate [Flonase 1 spr NS DAILY 01/31/18 01/08/20 History 50mcg nasal spray 16gm] Fluticasone/Salmeterol [Advair 1 puff IH BID 01/31/18 01/08/20 History 500/50mcg diskus] Tamsulosin HCl [Flomax 0.4mg 0.4 mg PO HS 01/31/18 01/08/20 History capsule] mycophenolate mofetiL [Cellcept] 1,500 mg PO BID 01/31/18 01/08/20 History Glucosa Richard 2Kcl/Chondroitin Richard 1 each PO DAILY 02/02/18 01/08/20 History [Glucosamine & Chondroitin Cap] Ipratropium Mulberry [Ipratropium 1 spray NS BID 02/02/18 01/08/20 History Mulberry 0.021mg/act NS] Multivitamin [Multivitamins] 1 each PO DAILY 02/02/18 01/08/20 History Nystatin [Nystatin Susp 500,000 1 tsp PO QID 02/02/18 01/08/20 History Units/5mL Udc] Furosemide [Furosemide 40MG tAB] 40 mg PO BID 06/28/18 01/08/20 History Melatonin 6 mg PO HS 06/28/18 01/08/20 History Metoprolol Tartrate 50 mg PO BID 06/28/18 01/08/20 History Aspirin [Aspirin 325mg Tab] 325 mg PO DAILY 01/08/20 01/08/20 History Atorvastatin Calcium [Lipitor 80mg 40 mg PO HS 01/08/20 01/08/20 History Tab] Azithromycin [Zithromax 250mg 250 mg PO DAILY 01/08/20 01/08/20 History tab] Benzonatate [Benzonatate 100mg 100 mg PO TID 01/08/20 01/08/20 History cap] Empagliflozin [Jardiance] 25 mg PO DAILY 01/08/20 01/08/20 History Omeprazole [Omeprazole 40mg 40 mg PO BID 01/08/20 01/08/20 History Capsule] Allergies Allerg
[2020-01-09 10:47] LABS: ABG Base Excess -8.2 mmol/L (-2.4-2.3); ABG HCO3 21.9 mmhg (22.0-26.0); ABG Oxygen Saturation 94 % (90-100); ABG PO2 83.7 mmhg (80-100); ABG TCO2 24.2 mmhg (23-27)
[2020-01-09 10:51] LABS: Oxygen 100 %; PEEP 20; Source A-LINE; Tidal Volume 450; Vent Rate 30
[2020-01-09 10:52] LABS: ABG PH 7.08 mmol/L (7.35-7.45)
[2020-01-09 10:53] LABS: ABG PCO2 76.3 mmhg (35.0-45.0)
--- NOTE | 2020-01-09 11:24 | PC.NURSE ---
1124- PT'S AT BEDSIDE. PT WAS BROUGHT UP TO FLOOR BY [facility] STAFF WEARING MASK D/T PT'S BEING COVID POSITIVE. DAWNED PPE IN CORRECT FASHION AND WAS EDUCATED ON CORRECT USE WHILE SHE IS VISITING PT. VERBALIZED UNDERSTANDING. VOICES NO NEEDS OR CONCERNS AT THIS TIME.
--- NOTE | 2020-01-09 11:25 | HMH.ACPN2 ---
Internal Medicine - PN: Subj *Date: 01/09/20 *Time: 23:43 Interval history: Patient assessed this morning in ICU. He unfortunately had a decline in his clinical status overnight. Patient had escalating oxygen requirement and respiratory support needs. Continue to remain hypoxic on 100% FiO2 via high flow nasal cannula. Given impending respiratory failure, was intubated electively. Has had difficult to manage respiratory acidosis overnight. Ventilator adjustment made this morning prior to morning rounds. Overnight was on respiratory rate of 20, FiO2 100%, PEEP of 10, and tidal volume of 400. Difficulty getting saturations out of the mid 80s. PCO2 remained above 100 on morning gas. See plan for full adjustments in vent settings. Pulmonology was consulted to assist with management of patient in the setting of severe ARDS, worsening hypoxemic respiratory failure, and COVID pneumonia. N.p.o. overnight. Blood pressure is been soft. Received 2 boluses with an adequate response. Remains afebrile. Has been tachycardic, hypotensive, sedated on propofol since intubation. Discussion with yesterday afternoon about patient's clinical deterioration. She and patient were both clear that he wants everything done at this time to help prolong life. Discussed patient again with her this morning after rounds. Patient's continued clinical deterioration in his already tenuous end-stage pulmonary fibrosis lung disease make him a very poor candidate for meaningful recovery at this time. Received permission from infection control to allow patient's family to come see him given his critical status and grave prognosis. Exam Vital signs and Labs for Last 24 Hours: Temp Pulse Resp BP Pulse Ox 97.4 F L 108 H 33 H 88/64 L 79 L 01/09/20 07:00 01/09/20 07:00 01/09/20 07:00 01/09/20 07:00 01/09/20 07:00 Laboratory Results - last 24 hr 01/08/20 12:10: WBC 9.9, RBC 4.96, Hgb 15.5, Hct 47.8, MCV 96.4 H, MCH 31.3 H, MCHC 32.5, RDW 14.8, Plt Count 169, MPV 8.4, Neut % (Auto) 87.6 H, Lymph % (Auto) 7.0 L, [place] % (Auto) 4.9, Eos % (Auto) 0.2, Baso % (Auto) 0.3, Neut # (Auto) 8.7 H, Lymph # (Auto) 0.7, [place] # (Auto) 0.5, Eos # (Auto) 0.0, Baso # (Auto) 0.0, Total Counted 100, Neutrophils % (Manual) 90 H, Lymphocytes % (Manual) 4 L, Monocytes % (Manual) 6, Platelet Estimate Normal, RBC Morphology Normal 01/08/20 12:10: Sodium 142, Potassium 3.4 L, Chloride 101, Carbon Dioxide 27, Anion Gap 17.4 H, BUN 21 H, Creatinine 0.90, Estimated Creat Clear 83, Estimated GFR 83, Est GFR ( Amer) 100, Glucose 128 H, Calcium 9.2, Magnesium 2.2, Total Bilirubin 0.7, AST 43, ALT 27, Alkaline Phosphatase 86, Total Protein 7.3, Albumin 4.4, Globulin 2.9, Albumin/Globulin Ratio 1.5 01/08/20 12:10: Lactate 3.9 H 01/08/20 12:15: Chlamy pneumoniae PCR Not detected, Adenovirus (PCR) Not detected, B. pertussis DNA (PCR) Not detected, Coronavirus OC43 (PCR) Not detected, Coronavirus HKU1 (PCR) Not detected, Coronavirus 229E (PCR) Not detected, COVID-19 PCR Detected A, Coronavirus NL63 (PCR) Not detected, Human Metapneumovir PCR Not detected, Influenza A (H1) PCR Not detected, Influ A (H1N1/09) PCR Not detected, Influenza A (H3) PCR Not detected, Influenza Type A (PCR) Not detected, Influenza Type B (PCR) Not detected, M. pneumoniae (PCR) Not detected, Parainfluenza 1 (PCR) Not detected, Parainfluenza 2 (PCR) Not detected, Parainfluenza 3 (PCR) Not detected, Parainfluenza 4 (PCR) Not detected, RSV (PCR) Not detected, Entero/Rhino (PCR) Not detected 01/08/20 13:05: Specimen Source Right radial, O2 % 50%, ABG pH 7.43, ABG pCO2 35.0, ABG pO2 55.9 L, ABG HCO3 22.6, ABG Total CO2 23.6, ABG O2 Saturation 90, ABG Base Excess -1.8, Pwoer Test Acceptable 01/08/20 15:54: POC Glucose 157 H 01/08/20 16:56: Lactate 1.7 01/08/20 19:42: POC Glucose 160 H 01/08/20 23:03: Troponin I < 0.01 01/08/20 23:03: Sodium 143, Potassium 4.3 D, Chloride 103, Carbon Dioxide 27, Anion Gap 17.3 H, BUN 18, Creatinine 0.7
--- NOTE | 2020-01-09 11:30 | HMH.PHACONS ---
- Pharmacy Consult Date: 01/09/20 Time: 11:30 Referring provider: DR. KAY Reason for Consult:: VANCOMYCIN DOSING Allergies and ADEs:: Allergies Allergy/AdvReac Type Severity Reaction Status Date / Time hydrocodone [HYDROCODONE] Allergy Unknown Verified 01/31/18 14:40 levocetirizine [From XYZAL] Allergy Unknown Verified 01/31/18 14:40 fluconazole [From Diflucan] Allergy Verified 06/27/18 18:39 lisinopril Allergy Verified 06/18/18 15:48 chlorpheniramine AdvReac Mild Drowsy Verified 01/31/18 15:09 [From Tussionex] Home Medications:: Home Medications Medication Instructions Recorded Confirmed Type Cetirizine HCl [Zyrtec] 10 mg PO DAILY 01/31/18 01/08/20 History Fluticasone Propionate [Flonase 1 spr NS DAILY 01/31/18 01/08/20 History 50mcg nasal spray 16gm] Fluticasone/Salmeterol [Advair 1 puff IH BID 01/31/18 01/08/20 History 500/50mcg diskus] Tamsulosin HCl [Flomax 0.4mg 0.4 mg PO HS 01/31/18 01/08/20 History capsule] mycophenolate mofetiL [Cellcept] 1,500 mg PO BID 01/31/18 01/08/20 History Glucosa Richard 2Kcl/Chondroitin Richard 1 each PO DAILY 02/02/18 01/08/20 History [Glucosamine & Chondroitin Cap] Ipratropium [place] [Ipratropium 1 spray NS BID 02/02/18 01/08/20 History [place] 0.021mg/act NS] Multivitamin [Multivitamins] 1 each PO DAILY 02/02/18 01/08/20 History Nystatin [Nystatin Susp 500,000 1 tsp PO QID 02/02/18 01/08/20 History Units/5mL Udc] Furosemide [Furosemide 40MG tAB] 40 mg PO BID 06/28/18 01/08/20 History Melatonin 6 mg PO HS 06/28/18 01/08/20 History Metoprolol Tartrate 50 mg PO BID 06/28/18 01/08/20 History Aspirin [Aspirin 325mg Tab] 325 mg PO DAILY 01/08/20 01/08/20 History Atorvastatin Calcium [Lipitor 80mg 40 mg PO HS 01/08/20 01/08/20 History Tab] Azithromycin [Zithromax 250mg 250 mg PO DAILY 01/08/20 01/08/20 History tab] Benzonatate [Benzonatate 100mg 100 mg PO TID 01/08/20 01/08/20 History cap] Empagliflozin [Jardiance] 25 mg PO DAILY 01/08/20 01/08/20 History Omeprazole [Omeprazole 40mg 40 mg PO BID 01/08/20 01/08/20 History Capsule] Height: 1.75 m Weight: 86.891 kg Laboratory Results:: Laboratory Results - last 24 hr 01/08/20 12:10: WBC 9.9, RBC 4.96, Hgb 15.5, Hct 47.8, MCV 96.4 H, MCH 31.3 H, MCHC 32.5, RDW 14.8, Plt Count 169, MPV 8.4, Neut % (Auto) 87.6 H, Lymph % (Auto) 7.0 L, Hood % (Auto) 4.9, Eos % (Auto) 0.2, Baso % (Auto) 0.3, Neut # (Auto) 8.7 H, Lymph # (Auto) 0.7, Hood # (Auto) 0.5, Eos # (Auto) 0.0, Baso # (Auto) 0.0, Total Counted 100, Neutrophils % (Manual) 90 H, Lymphocytes % (Manual) 4 L, Monocytes % (Manual) 6, Platelet Estimate Normal, RBC Morphology Normal 01/08/20 12:10: Sodium 142, Potassium 3.4 L, Chloride 101, Carbon Dioxide 27, Anion Gap 17.4 H, BUN 21 H, Creatinine 0.90, Estimated Creat Clear 83, Estimated GFR 83, Est GFR ( Amer) 100, Glucose 128 H, Calcium 9.2, Magnesium 2.2, Total Bilirubin 0.7, AST 43, ALT 27, Alkaline Phosphatase 86, Total Protein 7.3, Albumin 4.4, Globulin 2.9, Albumin/Globulin Ratio 1.5 01/08/20 12:10: Lactate 3.9 H 01/08/20 12:15: Chlamy pneumoniae PCR Not detected, Adenovirus (PCR) Not detected, B. pertussis DNA (PCR) Not detected, Coronavirus OC43 (PCR) Not detected, Coronavirus HKU1 (PCR) Not detected, Coronavirus 229E (PCR) Not detected, COVID-19 PCR Detected A, Coronavirus NL63 (PCR) Not detected, Human Metapneumovir PCR Not detected, Influenza A (H1) PCR Not detected, Influ A (H1N1/09) PCR Not detected, Influenza A (H3) PCR Not detected, Influenza Type A (PCR) Not detected, Influenza Type B (PCR) Not detected, M. pneumoniae (PCR) Not detected, Parainfluenza 1 (PCR) Not detected, Parainfluenza 2 (PCR) Not detected, Parainfluenza 3 (PCR) Not detected, Parainfluenza 4 (PCR) Not detected, RSV (PCR) Not detected, Entero/Rhino (PCR) Not detected 01/08/20 13:05: Specimen Source Right radial, O2 % 50%, ABG pH 7.43, ABG pCO2 35.0, ABG pO2 55.9 L, ABG HCO3 22.6, ABG Total CO2 23.6, A
--- NOTE | 2020-01-09 12:35 | PC.NURSE ---
Dr Pena called and spoke with this RN at approx, 1040. Per MD change RASS score on propofol to -4, levophed drip needs to be titrated to keep MAP >64. Amanda from Dr Bar's office gave order for pt ot have lactic acid drawn. order entered at approx 1215. lab drawn by Mildred Olson RN and Maia Long RN and sent to lab. Notified Dr Pena of abg results at approx 1040 pH 7.08 pCO2 76.3 pO2 83.7 HCO3 21.9 total CO2 24.2 O2 Sat 94 Base exc. -8.2 states that he is will enter in a cbc cmp for 1400. will continue to monitor.
[2020-01-09 12:52] LABS: Lactic Acid 3.1 mmol/L (0.7-2.1)
--- NOTE | 2020-01-09 13:28 | PC.NURSE ---
NEW ORDERS FROM DR LUCAS, TITRATE LEVOPHED TO KEEP MAP 65-70. CONSULT SURGERY FOR CENTRAL LINE FOR VASOPRESSERS.
--- NOTE | 2020-01-09 13:29 | PC.NURSE ---
1330 - Dr. Bar requests for levo to be titrated to achieve MAP of 65-70. Per Vishal Fraire levo may be titrated up to 60 mcg/kg/min (max). 1335 - Dr. Crawford notified of central line consult.
--- NOTE | 2020-01-09 13:33 | PC.NURSE ---
[address] Bar of lactic acid of 3.1 no new orders at this time. notified dr ahmadi office of central line consult at 1332. no new orders
--- NOTE | 2020-01-09 14:05 | PC.NURSE ---
called and to check status of bed availability. currently neither facility has a bed available.
--- NOTE | 2020-01-09 14:16 | PC.NURSE ---
Phone number for [facility]'s bed coordinator is
[2020-01-09 14:19] LABS: ABG Base Excess -4.1 mmol/L (-2.4-2.3); ABG HCO3 25.9 mmhg (22.0-26.0); ABG Oxygen Saturation 93 % (90-100); ABG PO2 74.2 mmhg (80-100); ABG TCO2 28.7 mmhg (23-27)
[2020-01-09 14:21] LABS: Oxygen 100 %; PEEP 20; Source A-LINE; Tidal Volume 450; Vent Rate 30
[2020-01-09 14:23] LABS: ABG PCO2 90.3 mmhg (35.0-45.0); ABG PH 7.08 mmol/L (7.35-7.45)
--- NOTE | 2020-01-09 14:29 | PC.NURSE ---
NOTIFIED MARY IN PULMONOLOGY OF ABG RESULTS.
[2020-01-09 14:42] LABS: Basophils % 0.2 % (0.1-2.0); Eosinophils # 0.1 K/mm3 (0.0-0.4); Eosinophils % 0.3 % (0.1-12.0); Hemoglobin 14.7 g/dL (14.1-18.0); Lymphocytes # 0.4 K/mm3 (0.7-4.5); Lymphocytes % 1.6 % (10-50); Mean Corpuscular Hemoglobin 31.8 pg (27.0-31.2); Mean Corpuscular Volume 99.4 fl (80-94); Mean Platelet Volume 9.1 fl (7.4-10.4); Monocytes # 0.8 K/mm3 (0.1-1.0); Monocytes % 3.2 % (1.7-9.3); Neutrophils # 24.3 K/mm3 (1.8-7.8); Neutrophils % 94.8 % (37.0-80.0); Platelet Count 196 K/mm3 (142-424); Red Blood Count 4.62 M/mm3 (4.60-6.20); Red Cell Distribution Width 14.6 % (11.5-17.5); White Blood Count 25.7 K/mm3 (4.8-10.8)
[2020-01-09 14:47] LABS: Chloride 108 mmol/L (98-107)
[2020-01-09 14:48] LABS: Potassium 4.3 mmoL/L (3.5-5.1); Sodium 147 mmol/L (136-145)
[2020-01-09 14:50] LABS: Alanine Aminotransferase 27 U/L (12-78); Aspartate Amino Transferase 65 U/L (17-59); Blood Urea Nitrogen 26 mg/dl (9-20); Creatinine Clearance Estimated 55 mL/min (50-200); Estimated Glomerular Filt Rate 46 ml/min (>60); GFR (African American) 56 ML/MIN (>60)
[2020-01-09 14:51] LABS: Albumin Level 3.3 g/dl (3.5-5.0); Albumin/Globulin Ratio 1.3 (1.1-1.8); Alkaline Phosphatase 89 U/L (38-126); Anion Gap 15.3 mEq/L (5-15); Bilirubin,Total 0.4 mg/dl (0.2-1.3); Carbon Dioxide 28 mmol/L (22.0-30.0); Globulin 2.5 g/dL (1.3-3.2); Glucose 273 mg/dl (74-100); Total Protein,Serum 5.8 g/dl (6.3-8.2)
--- NOTE | 2020-01-09 14:51 | PC.NURSE ---
1440: HERE FOR CONSULT. STATED HE WOULD BE BACK TO PUT IN FEMORAL LINE. SUPPLIES GATHERED AND AWAITING .
--- NOTE | 2020-01-09 15:08 | PC.NURSE ---
1455: DR. CONNELL EXPLAINING PROCEDURE TO . SIGNED CONSENT FOR CENTRAL LINE. RISK AND BENEFITS EXPLAINED TO . 1500: DR. CONNELL AT BESIDE TO PLACE CENTRAL LINE. TIMEOUT PERFORMED. Reshma NORTH RN, ALISSON WOO AT BEDSIDE TO ASSIST.
[2020-01-09 15:09] LABS: MANUAL DIFFERENTIAL MANUAL DIFFERENTIAL (MANUAL DIFF)
--- NOTE | 2020-01-09 15:21 | PC.NURSE ---
1500: INCREASE LEVOHPHED GTT TO 55MCG/MIN. OVERRIDE ON INFUSION PUMPED OKAYED PER ERIS, PHARMACY. ERIS STATED MAX RATE OF 60MCG/MIN.
--- NOTE | 2020-01-09 15:28 | PC.NURSE ---
DR. CONNELL STATED TO OBTAIN AND VENOUS BLOOD GAS. IF GAS IS OK TO PROCEED AND USE FEMORAL LINE.
--- NOTE | 2020-01-09 15:54 | HMH.GSCON ---
*Admission Date: 01/08/20 *Reason for consult:: Central line placement *History of present illness: History was obtained from the chart review as patient was intubated and sedated and unable to communicate. Mr. Villanueva is a 74-year-old male with a history of nonspecific interstitial pneumonia, pulmonary fibrosis, hypertension, chronic respiratory failure on long-term oxygen therapy at 2 to 3 L presented yesterday to the clinic with worsening shortness of breath and cough for 2 to 3 days duration. He was also on the lung transplant list at [facility] for fibrosis and respiratory failure. Hospital course: He was admitted to the hospital with worsening respiratory failure and was initially placed on BiPAP, however his respiratory status gradually declined needing intubation emergent intubation overnight. His COVID-19 PCR returned positive yesterday. His vent requirements gradually worsened overnight to a point where this morning he is needing 20 of PEEP at 100% FiO2, respiratory rate of 30 with a PO2 of 76.3 on the recent ABG. Peak pressures are ranging anywhere between like 35-45 mm Hg with high plateau pressures consistent with his pulmonary fibrosis. With respect to his sepsis patient initial lactate was elevated at 6, he was given a 1 L bolus in the ED and was started on Zosyn and levofloxacin. Patient lactate returned to normal, however his blood pressures remain low as of this morning, however the blood pressure cuff readings are inaccurate and highly variable, an arterial line was placed. However due to technical difficulties we could not get a reading on the A-line. Review of Systems - Review of Systems Review of systems:: unable to obtain [facility] History I have reviewed the patient's past medical history: Yes Medical History: Reports:: Diabetes Mellitus Type 2, Hyperlipidemia, Hypertension, Lung Disease (Idiopathic pulmonary fibrosis, frequent pneumonia, home o23 l) Denies:: Cancer, Diabetes Mellitus Type 1, Internal Pacemaker, MRSA, Seizures *Have you ever received a pneumonia vaccine?: Yes *Have you received a flu vaccine this season?: Yes Other Medical History: Reports: Arthritis, Cataracts Other Surgeries: Yes: Cardiac Catheterization. No: Pacemaker Amputation: No - *Social History Smoking Status: Never smoker Tobacco Type: cigarettes Alcohol Intake: never *Occupational Status:: retired Housing: house Household Members: spouse *Travel in the last 8 weeks: None Family Hx:: Coronary Artery Disease, Diabetes, Heart Attack Meds Home Medications Medication Instructions Recorded Confirmed Type Cetirizine HCl [Zyrtec] 10 mg PO DAILY 01/31/18 01/08/20 History Fluticasone Propionate [Flonase 1 spr NS DAILY 01/31/18 01/08/20 History 50mcg nasal spray 16gm] Fluticasone/Salmeterol [Advair 1 puff IH BID 01/31/18 01/08/20 History 500/50mcg diskus] Tamsulosin HCl [Flomax 0.4mg 0.4 mg PO HS 01/31/18 01/08/20 History capsule] mycophenolate mofetiL [Cellcept] 1,500 mg PO BID 01/31/18 01/08/20 History Glucosa Richard 2Kcl/Chondroitin Richard 1 each PO DAILY 02/02/18 01/08/20 History [Glucosamine & Chondroitin Cap] Ipratropium [place] [Ipratropium 1 spray NS BID 02/02/18 01/08/20 History [place] 0.021mg/act NS] Multivitamin [Multivitamins] 1 each PO DAILY 02/02/18 01/08/20 History Nystatin [Nystatin Susp 500,000 1 tsp PO QID 02/02/18 01/08/20 History Units/5mL Udc] Furosemide [Furosemide 40MG tAB] 40 mg PO BID 06/28/18 01/08/20 History Melatonin 6 mg PO HS 06/28/18 01/08/20 History Metoprolol Tartrate 50 mg PO BID 06/28/18 01/08/20 History Aspirin [Aspirin 325mg Tab] 325 mg PO DAILY 01/08/20 01/08/20 History Atorvastatin Calcium [Lipitor 80mg 40 mg PO HS 01/08/20 01/08/20 History Tab] Azithromycin [Zithromax 250mg 250 mg PO DAILY 01/08/20 01/08/20 History tab] Benzonatate [Benzonatate 100mg 100 mg PO TID 01/08/20 01/08/20 History cap] Empagliflozin [Jardiance] 25 mg PO DAILY 01/08/20
--- NOTE | 2020-01-09 15:56 | HMH.PROC ---
[facility] Procedure Note Procedure Note:: Indications: Need for central venous access secondary to high-dose vasopressors Procedure: Placement 7 Moldovan triple-lumen catheter into left femoral vein Anesthesia: 1% Xylocaine Consent was obtained. Timeout was performed. Patient was maintained in a semi recumbent position in the bed. Left groin area was prepped and draped in the standard surgical fashion. The femoral artery was palpated. None immediately medial to this local anesthetic was infiltrated. 18-gauge catheter was inserted and there was good return of presumably venous blood. Guidewire was inserted. Small incision was made at insertion site. However, catheter could not be threaded. Ultimately this required removal of the guidewire and repeat cannulation of the femoral vein with the 18-gauge needle. There was good return of presumably venous blood. Guidewire was inserted. Small incision was made insertion site. Subcutaneous tissues were dilated. 7 Moldovan triple-lumen catheter was inserted over the guidewire using Seldinger technique. There is good return of venous blood. Secured to the skin with silk suture. Dressing was applied. There were no immediate complications.
[2020-01-09 15:58] LABS: Lymphocytes % 2 % (10-50); Monocytes % 3 % (2-9); Neutrophils % 95 % (42-76); Total Cells Counted 100
[2020-01-09 15:59] LABS: Platelet Estimate Normal; RBC Morphology Normal
--- NOTE | 2020-01-09 15:59 | PC.NURSE ---
1553: Ashley RIGGINS RN [facility] VENOUS BLOOD GAS FEMORAL LINE. Shirley MALAGON. HERE TO RUN LAB.
--- NOTE | 2020-01-09 16:01 | PC.NURSE ---
AND DAUGHTER AT BEDSIDE. BOTH VISITORS IN FULL PPE.
[2020-01-09 16:03] LABS: VBG Base Excess -6.3 mmol/L (-2.4-2.3); VBG HCO3 23.8 mmol/L (23-30); VBG Oxygen Saturation 81.6 % (50-70); VBG PCO2 82.8 mmol/L (35-51); VBG PO2 49.3 mmol/L (28-40); VBG Total CO2 26.3 mmol/L (23-27)
[2020-01-09 16:09] LABS: VBG PH 7.08 mmol/L (7.31-7.41)
--- NOTE | 2020-01-09 16:11 | PC.NURSE ---
SPOKE WITH Shirley GAVIN. SHE STATED VBG WAS INDEED VENOUS BLOOD. DR. CONNELL STATED TO USE FEMORAL LINE IF VBG OK.
[2020-01-09 16:36] LABS: Reflex Lactic Add Lactic Reflex
--- NOTE | 2020-01-09 16:40 | PC.NURSE ---
1640 - SPOKE W/ DR. KAY VIA TELEPHONE AT THIS TIME TO UPDATE ON PT'S STATUS. NO NEW ORDERS RECEIVED AT THIS TIME.
[2020-01-09 17:22] LABS: Lactic Acid Follow Up (RFLX 1) 2.3 mmol/L (0.7-2.1)
--- NOTE | 2020-01-09 18:30 | PC.NURSE ---
DR. KAY SPEAKING TO PT'S AND DAUGHTER AT THIS TIME.
--- NOTE | 2020-01-09 19:00 | PC.NURSE ---
Pt remains on vent. Dr. Bar consulted this shift, changes made to vent by RT per MD orders this shift. #[address] 24 @ lip. Tube has been moved to (R) side this shift. NG in place to (R) nare to ILWS w/ green gastric content out this shift. Pt has been ET suctioned multiple times this shift, minimal amount of secretions noted, blood tinged in appearance. Oral care provided q2h or prn. Art line placed by Dr. Bar this shift. Line has been zeroed and flushed per protocol. Orders received this shift for levophed to be tritrated to maintain a MAP of 65-70. Levophed gtt currently @ 45 mcg/min at this time. Pharmacy okay'd titration and states levo may be increased up to 60 mcg/min. Diprivan has been titrated as well to attain a RASS score of -4. Gtt currently @ 12 mcg/kg/min. Pt tolerating well. Pupils PERRLA. Central line placed using sterile technique by Dr. Crawford at bedside. Placed verified by VBG per MD. Pt has been turned and repositioned q2h this shift. Heels floating. De Souza cath draining clear yellow urine at bedside. De Souza cath care provided by staff. No BM this shift. D/t pt's current condition, pt not able to tolerate a receiving full bed bath. Pt was cleaned up and top sheets, draw sheet and chux changed. IVF infusing per AUG. Report given to Alex MorelRN and Jane Flaherty RN.
[2020-01-09 19:10] LABS: Reflex Lactic (2 hrs) Add Lactic Reflex
--- NOTE | 2020-01-09 19:25 | PC.NURSE ---
1914 - BED AVAILABLE IN @ MICU BED #7. 1916 - [place] [facility] AWARE OF FLIGHT AT THIS TIME. [facility] ON FLIGHT 1926 - DR. KAY ON THE PHONE W/ PT'S FAMILY ABOUT TRANSFER. FAMILY HAS DECIDED TO DECLINE TRANSFER TO [facility]. 1928 -[facility] MADE AWARE OF DECLINE FOR TRANSFER. 1937 - [facility] MADE AWARE OF FAMILY'S REQUEST FOR PT TO NOT BE TRANSFERRED.
[2020-01-09 20:08] LABS: Lactic Acid Follow up (RFLX 2) 2.6 mmol/L (0.7-2.1)
[2020-01-09 20:30] LABS: Calcium 7.3 mg/dl (8.4-10.2)
--- NOTE | 2020-01-09 21:01 | PC.NURSE ---
ART line zeroed at 1999.
--- NOTE | 2020-01-09 21:39 | PC.NURSE ---
He continues on airborne & contact precautions r/t COVID 19. He is intubated and sedated. Ventilator settins on AC, TV 450, R 30, PEEP 20, FiO2 100%. He has an 8.0 ETT on the right side @ 26 @ the lip. He is being ETT and oral suction q 2 hours and PRN. Small amounts of thin, clear sputum via ETT suction. Oral care performed q 2 hours with clear, thin secretions. He has a NG in his right nare @ 60 with LIWS. Brownish colored drainage in NG tube. He has an ART line present in his left wrist with the transducter at the phlebostatic axis. ART line being zeroed q 4 hours. He is voiding per #16 Fr f/c. His urine is yellow, clear. He is currently overbreathing the vent at 36. Tachycardia on telemetry. He continues on levophed and propofol gtt. He is sedated to RASS -4. Gag reflex is present.
[2020-01-09 22:18] LABS: POC Glucose,Bedside 279 (70-110)
[2020-01-09 22:18] LABS: POC Glucose,Bedside 197 (70-110)
[2020-01-09 22:18] LABS: POC Glucose,Bedside 249 (70-110)
[2020-01-09 22:18] LABS: POC Glucose,Bedside 243 (70-110)
--- NOTE | 2020-01-09 22:34 | PC.NURSE ---
Jm contacted at 2149 r/t pt with GCS of 3 and pt's family to make pt a DNR but not withdrawal care. Spoke with Sirisha. She was informed with pt's diagnosis of severe ARDS with pneumonia secondary to COVID 19. She stated he was a rule out r/t positive status of COVID 19 but to call back with time of .
[2020-01-10] VITALS (14 sets, daily range): BP systolic 83–136; BP diastolic 55–91; PULSE 108–120; RESP 37–41; TEMP 37–39; O2SAT 93–97; BMI 29.9
--- NOTE | 2020-01-10 00:06 | PC.NURSE ---
He received a complete bed bath and linen change. Heel protectors placed on bilateral feet. He BLE are elevated while he is supine. No urine output noted at this time for the previous hour. Continuing to monitor.
--- NOTE | 2020-01-10 03:41 | PC.NURSE ---
Continuing to monitor his urine output. Urine output had decreased but is starting to increase. He is also starting to become more tachypneic in the 40-41 range.. BP also started to increase. Propofol increased at this time to 25mcg/kg/min and respirations decreased to 38. He continues have a gag reflex. Pupils are not reactive but have been a 3 consistantly. His urine is yellow, clear.
--- NOTE | 2020-01-10 04:28 | PC.NURSE ---
He became hypotensive when turned to the left for his rectal temperature. Propofol decreased and levophed increased to max at 60mcg at this time. Will attempt to wean.
--- NOTE | 2020-01-10 05:00 | XR_ITS ---
PROCEDURE: XR CHEST PORTABLE CLINICAL HISTORY: Intubated pt. Respiratory failure COMPARISON: No exams were available for comparison FINDINGS: 5:05 a.m.. Endotracheal tube tip is in good position 5 cm above the fabiana. Nasogastric tube tip is in the region of the body of stomach. There remains diffuse bilateral aspects disease with alveolar opacification not significantly changed. IMPRESSION: No change diffuse bilateral alveolar disease/pneumonia with good position of endotracheal tube and nasogastric tube Dictated b Power Flores MD 01/10/2020 07:44 Power Flores MD in OV 01/10/2020 07:44
--- NOTE | 2020-01-10 05:14 | PC.NURSE ---
During chest x-ray he opened his eyes. Levophed decreased to 40mcg/min and propofol increased to 15mcg/kg/min. He is sweaty. Have placed ice packs in groin and under his arm pits in attempts to cool him. Respirations increased to 41 at this time.
[2020-01-10 05:18] LABS: POC Glucose,Bedside 214 (70-110)
--- NOTE | 2020-01-10 05:35 | PC.NURSE ---
Levophed decreased to 35mcg/min at this time and propofol increased to 18mcg/kg/min. He has continued to open his eyes and move his head. Unable to make contact. He is still febrile. Ice packs are in place and plan to give acetaminophen when it is within time frame on AUG.
[2020-01-10 05:47] LABS: Chloride 109 mmol/L (98-107); Potassium 4.7 mmoL/L (3.5-5.1); Sodium 144 mmol/L (136-145)
[2020-01-10 05:49] LABS: Basophils # 0.1 K/mm3 (0-0.2); Basophils % 0.5 % (0.1-2.0); Eosinophils % 0.1 % (0.1-12.0); Hemoglobin 13.8 g/dL (14.1-18.0); Lymphocytes # 0.4 K/mm3 (0.7-4.5); Lymphocytes % 1.8 % (10-50); Mean Corpuscular HGB Conc 31.3 g/dL (31.8-35.4); Mean Corpuscular Hemoglobin 31.1 pg (27.0-31.2); Mean Corpuscular Volume 99.3 fl (80-94); Mean Platelet Volume 9.6 fl (7.4-10.4); Monocytes # 1.1 K/mm3 (0.1-1.0); Monocytes % 5.1 % (1.7-9.3); Neutrophils # 20.8 K/mm3 (1.8-7.8); Neutrophils % 92.6 % (37.0-80.0); Platelet Count 151 K/mm3 (142-424); Red Blood Count 4.43 M/mm3 (4.60-6.20); Red Cell Distribution Width 14.8 % (11.5-17.5); White Blood Count 22.4 K/mm3 (4.8-10.8)
[2020-01-10 05:50] LABS: Alanine Aminotransferase 34 U/L (12-78); Albumin Level 3.1 g/dl (3.5-5.0); Albumin/Globulin Ratio 1.1 (1.1-1.8); Alkaline Phosphatase 91 U/L (38-126); Anion Gap 12.7 mEq/L (5-15); Aspartate Amino Transferase 86 U/L (17-59); Bilirubin,Total 0.4 mg/dl (0.2-1.3); Blood Urea Nitrogen 39 mg/dl (9-20); Carbon Dioxide 27 mmol/L (22.0-30.0); Creatinine Clearance Estimated 31 mL/min (50-200); Estimated Glomerular Filt Rate 22 ml/min (>60); GFR (African American) 27 ML/MIN (>60); Globulin 2.7 g/dL (1.3-3.2); Glucose 221 mg/dl (74-100); MANUAL DIFFERENTIAL MANUAL DIFFERENTIAL (MANUAL DIFF); Total Protein,Serum 5.8 g/dl (6.3-8.2)
[2020-01-10 05:51] LABS: Lactic Acid 1.8 mmol/L (0.7-2.1)
[2020-01-10 06:39] LABS: ABG Base Excess -5.3 mmol/L (-2.4-2.3); ABG HCO3 22.1 mmhg (22.0-26.0); ABG Oxygen Saturation 97 % (90-100); ABG PH 7.24 mmol/L (7.35-7.45); ABG PO2 89.7 mmhg (80-100); ABG TCO2 23.8 mmhg (23-27)
[2020-01-10 06:41] LABS: Oxygen 100 %; PEEP 20; Tidal Volume 450; Vent Rate 30
[2020-01-10 06:42] LABS: ABG PCO2 53.3 mmhg (35.0-45.0); Source A-LINE
--- NOTE | 2020-01-10 06:42 | PC.NURSE ---
ART line has been zeroed q 4 hours. His respirations are 39 at this time. He continues to be febrile. PRN medication given.
[2020-01-10 07:39] LABS: Lymphocytes % 1 % (10-50); Monocytes % 4 % (2-9); Neutrophils % 94 % (42-76); Total Cells Counted 100
[2020-01-10 07:40] LABS: Platelet Estimate Normal; RBC Morphology Normal
--- NOTE | 2020-01-10 07:42 | PC.NURSE ---
Femoral DSG changed on central line r/t being saturated in blood. Changed via sterile technique.
--- NOTE | 2020-01-10 09:18 | PC.NURSE ---
Addendum entered by Nidia Pritchard RN 01/10/20 09:53: 0730 - Art line zeroed at this time by Alex Morel, RN, myself at bedside; All lines inspected by both of us and rates of fluids/gtts verified together; Pt currently laying on left side, heel protectors on his feet; De Souza is at bedside with 5ml's of clear yellow urine. NG tube in place @ 60 draining small amount of brown drainage. Pupils fixed at approx 4mm. ET tube 24 @ the lip; Original Note: 0735 - New bag of levophed hung by Alex Morel RN verified by myself. 0740 - Dr Childs notified in person of ABG results; He stated RT can adjust vent settings; RT notified at this time by myself. 0745 - Respiratory at bedside to adjust vent settings 0802 - I noticed BP had dropped to 77/51, HR 105. This nurse went into patients room to assess BP change; No change noted from report this am 0805 - BP 69/44, HR 110; Sinus tach on telemetry. Levophed increased to 40 mcg 0807 - BP 63/41, HR 106; Dr Childs notified and on his way to the floor. 0810 - Dr Childs okay'd levophed increase and requests to notify respiratory to change vent setting. RT notified 0813 - Respiratory at bedside adjusting vent settings. BP 51/32, HR 99; Patients notified of change in patients status 0816 - HR 48, unable to obtain BP 0818 - HR 49, Sinus ata on telemetry 0820 - HR 36, rhythm change noted on telemetry 0825 - HR 0, asystole on telemetry. MD at bedside; No palpable pulse noted and no pulse on auscultation; Patient pronounced at this time by Dr Childs; 0826 - Dr Childs notified patients 0850 - Jm notified and patient ruled out per Nely Felder; ;
--- NOTE | 2020-01-10 09:32 | DIET.NUTRFU ---
Addendum entered by Cristin Obrien 01/11/20 10:24: Prior note was a late entry completed to prior to patient passing, please disregard. Original Note: Nutritional consult completed/nutritional assessment, IP edited to include new nutritional dx. Pt is intubated, upon MD's order initiate TF: Recommend continuous tube feeding regimen of Glucerna 1.0 @ 20mL/hr advance by 10mL/hr as tolerated to goal rate of 65mL/hr. This regimen will provide 1500 kcal, 63g protein, 82g fat, 143g carbohydrates, and 1280mL free water. Additional fluid needs of 1472mL are currently being met through IV fluids. If fluids discontinued, recommend water flushes of 245mL q 4 hours to meet additional fluid needs.
--- NOTE | 2020-01-15 07:53 | HMH.DCSUM ---
General - General Admission date:: 01/08/20 Discharge date: 01/10/20 HPI HPI: Mr. Schrader is a pleasant 74-year-old gentleman with unfortunate history of pulmonary fibrosis, nonspecific interstitial pneumonitis, hypertension, dysthymia, on chronic O2 dependence (2 to 3 L). He presented to clinic today because of worsening shortness of breath and cough over the past 2 to 3 days. He has had increase his oxygen to 5 L with oxygen saturations at home from mid 70s to high 80s. Cough is productive for purulent sputum that is blood-tinged. Denies fever but has been having chills. No known COVID exposure but his admits she has had some upper respiratory symptoms. Patient has been tolerating good p.o. intake, staying hydrated, no nausea, vomiting, diarrhea. Last respiratory illness was in June. Gets flares 3-4 times a year necessitating antibiotics and steroids. Of note, is on lung transplant list at where his [facility] located. Patient was admitted for hypoxemic respiratory failure. Further management pending work-up initiated. Concern for sepsis given tachycardia and tachypnea on exam in clinic. Labs pending consisting of CBC, CMP, blood cultures, sputum sample, ABG, lactate, and respiratory panel. Chest imaging with CT and x-ray. In clinic, patient tachypneic into the high 30s with tachycardia of 96 bpm. Denies any travel. He and his have left the house for baptism and grocery shopping. Wear their mask when they are out. Hospital Course Hospital Course: Patient was admitted to the [facility] isolation unit. Unfortunately patient decompensated very quickly the night after admission and required intubation because of significant respiratory acidosis and worsening hypoxia, above and beyond permissive hypoxia that we were attempting because of coronavirus 19 infection. After intubation the patient quickly progressed to requiring maximal ventilatory pressures including PEEP greater than 20, respiratory rate 35 with FiO2 of 100%. Pulmonology was consulted, recommendations appreciated. Patient's family declined to tertiary care transfer and wished patient to be managed with a no chest compressions/electrocardioversion status but maintained on ventilatory support. This was done, and overnight patient was stable. However the following morning patient became more unstable and required increasing doses of pressors to maintain systolic blood pressure. Patient then went into pulseless electrical activity with cardiac dysfunction and resulting at 8:25 AM on the morning of January 09. In accordance with his family's wishes CPR and chest compressions and cardioversions were not undertaken. Objective Vital signs: Temp Pulse Resp BP Pulse Ox 98.6 F 118 H 37 H 94/63 L 96 01/10/20 07:00 01/10/20 08:00 01/10/20 08:00 01/10/20 08:00 01/10/20 07:00 Narrative: Not applicable-patient DS: Diagnosis - Discharge Diagnosis (1) Pneumonia due to severe acute respiratory syndrome coronavirus 2 (SARS-CoV-2) Status: Acute (2) Acute on chronic respiratory failure with hypoxemia Status: Acute Problem details: 74 year-old male with pulmonary fibrosis presented with acute on chronic respiratory failure likely secondary to COVID-19 infection. (3) COVID-19 virus detected Status: Acute (4) Sepsis Status: Acute (5) Diabetes Status: Chronic (6) Pulmonary fibrosis Status: Chronic (7) Hemoptysis Status: Acute Problem details: Probable cause from pneumonia/lung inflammation (8) Acute respiratory distress syndrome (ARDS) due to 2019 novel coronavirus Status: Acute (9) Acute kidney injury due to COVID-19 Status: Acute (10) Multi-organ system dysfunction Status: Acute Discharge Plan - Patient Discharge Instructions ACTIVITY: Other DIET: other Patient Instructions: Type 2 Diabetes, Idiopathic Pulmonary Fibrosis, Acute Respiratory Distress Syndrome, DI for S
== END 2020-01-10 12:20 | disposition expired | DRG 208 ==
LOC: 2ND 11:35 → ICU 14:51
PROVIDERS: Family Medicine; Internal Medicine Pulmonary Disease; Surgery; Admitting Provider Internal Medicine Adolescent Medicine; PCP Internal Medicine Adolescent Medicine; Visit Provider Internal Medicine Adolescent Medicine
DX: U07.1 COVID-19 (principal); J12.89 Other viral pneumonia; J96.21 Acute and chronic respiratory failure with hypoxia; R65.20 Severe sepsis without septic shock; N17.9 Acute kidney failure, unspecified; E11.9 Type 2 diabetes mellitus without complications; J84.112 Idiopathic pulmonary fibrosis; Z99.81 Dependence on supplemental oxygen
CPT/HCPCS: 31500; 94002; 71045; 71260; 80053; 81001; 82803; 82962; 83605; 83735; 84484; 85007; 85025; 87040; 87070; 87081; 87205; 87581; 87633; 87798; 93005; 94003; 94640; 94760; C1751; J1956; J2543; J2704; J3370; Q9967